=== PATIENT | male | born 1945 | race Caucasian/White ===

== ENCOUNTER 2023-02-02 10:02 | Outpatient (AMB) | payer MEDICARE, SELFPAY ==
[2023-02-02 10:15] VITALS: BP 112/68; PULSE 41; O2SAT 98; BMI 29.6
--- NOTE | 2023-02-02 10:15 | MHC.OFFVIS ---
Intake Vital Signs 02/02/23 10:15 Height 6 ft Weight 218 lb BMI 29.6 BP 112/68 Blood Pressure Location Rt brachial Position Sitting Pulse 41 L Pulse Source Pulse Oximeter Pulse Oximetry (%) 98 Oxygen Delivery Method Room Air Intake Visit Reasons: Obstructive sleep apnea Transition Rn Required: No Community Relations Officer: Community Relations Officer offered & declined Accompanied by: Spouse Allergies ciprofloxacin Adverse Reaction (Severe, Verified 02/02/23 10:20) Renal failure Medication List - Last Reconciled 02/02/23 by Carissa Baptiste LPN apixaban (Eliquis) 2.5 mg PO BID carbidopa-levodopa 25-100 mg 1 tab PO TID fluconazole 150 mg PO QWEEK rosuvastatin 20 mg PO DAILY valsartan-hydrochlorothiazide 160-25 mg 1 tab PO DAILY HPI Obstructive sleep apnea HPI Details Allen is a pleasant 77 year old male, former smoker with an approximate 24 pack year history, quit 50 years ago, with underlying obstructive sleep apnea on CPAP, CABG x 3, atrial fibrillation s/p ablation maintained on eliquis and recent dx of parkinson's. He was referred for pulmonary evaluation by PCP to manage LOVELY. He currently uses a full face mask and obtains supplies through [employer]. He is looking to switch his care regarding CPAP therapy as his current provider is retiring. He reports dyspnea with minimal exertion that has progressively worsened over the past few years as well as intermittent cough with clear sputum. He denies wheezing, chest tightness or chest pain. He reports son with asthma and brother with unknown respiratory issues. 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 He is currently involved in possible litigation surrounding prior asbestos exposure and has been told he has asbestosis. He denies any PFT or chest CT. He also notes he is undergoing cardiac evaluation for bradycardia and BLE edema. He denies orthopnea. He has had a stress test, holter and echocardiogram recently through [facility]. These reports are not available. He states he is going to be having a consultation with an arrhythmia specialist in the near future. [facility] Social History (Updated 02/02/23 @ 10:23 by Carissa Baptiste LPN) Patient Tobacco Use Status: Former Tobacco user Tobacco use type: Cigarette, Cigar and Pipe Cigarette Packs Per Day: 2 Years Smoked: 12 Review of Systems Const Denies chills, Denies excessive sweating, Denies fever(s), Denies headache(s) and Denies night sweats Eyes Denies dry eyes, Denies irritation and Denies itchy eyes ENT Reports Normal hearing present, Denies headache(s), Denies nasal congestion, Denies nasal discharge, Denies post nasal drip and Denies sore throat Card Denies chest pain, Denies chest pain at rest, Denies chest pain with activity, Denies claudication, Reports leg edema, Reports dyspnea on exertion, Denies orthopnea and Denies paroxysmal nocturnal dyspnea Resp Denies chest congestion, Reports cough, Denies excessive phlegm production, Denies pain on inspiration, Denies pain with cough, Reports dyspnea on exertion, Denies stridor and Denies wheezing Musc Denies myalgias Neuro Reports Normal hearing present and Denies headache(s) Endo Denies excessive sweating Felipe/Lymph Denies lymphadenopathy Aller/Immun Denies itchy eyes, Denies seasonal rhinorrhea and Denies wheezing Physical Exam Vital Signs: Last Vital Signs Pulse 41 L 02/02/23 10:15 BP 112/68 02/02/23 10:15 Pulse Ox 98 02/02/23 10:15 Oxygen Delivery Method Room Air 02/02/23 10:15 BMI result Body Mass Index 29.6 Const General: cooperative, healthy appearing, comfortable, no acute distress, well developed and alert Orientation/consciousness: patient oriented x3 Limitations: no limitations HEENT Head: Yes normal to inspection, Yes normocephalic and Yes atraumatic Ears: hearing grossly normal bilaterally and external ears normal Eyes General: appearance normal, both eyes and all related structures Eyelids: Yes eyelids normal Sclerae: sclerae normal EOM: EOMs intact bilaterally Neck Neck: Yes normal visual inspection and Yes no lymphadenopathy Lymphatic: no lymphadenopathy noted Chest Chest palpation & inspection: normal inspection of the chest Resp Effort & Inspection: normal respiratory effort, able to speak in complete sentences, no audible wheezes, no cough, no stridor, not tachypneic, no tripod positioning and no use of accessory muscles Auscultation: diminished lung sounds Cardio Jugular venous distension: no JVD Rate: regular rate Rhythm: regular rhythm Skin Other: warm, dry General skin exam: no rashes or lesions noted Neuro General: patient oriented x3 Cranial nerves: Yes Normal hearing present Cognition (Neuro): normal cognition Gait exam (Neuro): Normal gait present Extrem Other: 2+ pitting edema bilaterally General: Yes normal to inspection and Yes capillary refill normal Psych Appearance: grossly normal and well kempt Speech and movement: Normal speech and movement present and Clear speech present Affect: normal affect Attitude: cooperative Thought process: Normal thought process present Thought content: Normal thought content present Insight: Good insight present (Psych) Judgement: Good judgement present (Psych) Assessment & Plan Assessment & Plan (1) Dyspnea on minimal exertion: Code(s): R06.09 - Other forms of dyspnea (2) Cough: Code(s): R05.9 - Cough, unspecified (3) Asbestos exposure: Code(s): Z77.090 - Contact with and (suspected) exposure to asbestos (4) History of smoking 10-25 pack years: Code(s): Z87.891 - Personal history of nicotine dependence Plan Allen's symptoms are likely multifactorial with contribution from pulmonary, cardiac and deconditioning etiologies. Will send for PFT to evaluate. Given prior history of asbestos exposure, will send for chest CT. Will also have patient sign release to obtain cardiology records. Will reach out to [employer] for compliance report. All questions were answered and patient is in agreement of plan. Will follow up in 6-8 weeks or sooner if needed. Orders: Orders PFT pulmonary function test Today R05.9 - Cough, unspecified, R06.09 - Other forms of dyspnea CT chest wo IV con Today R05.9 - Cough, unspecified, Z77.090 - Contact with and (suspected) exposure to asbestos Coding Level of Care Code New Pt Level 4 (61892) Diagnoses Dyspnea on minimal exertion R06.09 Cough R05.9 Asbestos exposure Z77.090 History of smoking 10-25 pack years Z87.891
== END 2023-02-02 11:33 | disposition home or self-care (01) ==
PROVIDERS: PCP Internal Medicine; Referring Provider Internal Medicine; Visit Provider Nurse Practitioner Family
DX: R06.09 Other forms of dyspnea (principal); R05.9 Cough, unspecified; Z77.090 Contact with and (suspected) exposure to asbestos; Z87.891 Personal history of nicotine dependence
CPT/HCPCS: 99204

== ENCOUNTER → 2023-02-02 10:02 | Outpatient (BNVA) | payer MEDICARE, SELFPAY | PROVIDERS: PCP Internal Medicine; Referring Provider Internal Medicine; Visit Provider Nurse Practitioner Family | DX: R06.09 Other forms of dyspnea (principal); R05.9 Cough, unspecified; Z77.090 Contact with and (suspected) exposure to asbestos; Z87.891 Personal history of nicotine dependence | CPT/HCPCS: 99202 ==

== ENCOUNTER 2023-03-18 08:32 | Outpatient (REF) | payer MEDICARE, SELFPAY ==
--- NOTE | ~2023-03-18 | CT_ITS ---
EXAMINATION: CT CHEST WITHOUT CONTRAST CLINICAL INFORMATION: Asbestos exposure. COMPARISON: None available. TECHNIQUE: Multidetector volumetric CT imaging of the chest was done. Axial MIP volume rendering provided. Sagittal and coronal reformatted images were obtained. This CT examination was performed using dose optimization techniques as appropriate, variously including the following: *Automated exposure control *Adjustment of mA and/or kV according to patient size (this includes techniques or standardized protocols for targeted exams where dose is matched to indication/reason for exam; i.e. extremities or head) *Use of iterative reconstruction technique DLP: 208 mGy-cm FINDINGS: LUNGS AND PLEURA: Trachea and central airways are widely patent and normal in caliber. No interstitial lung disease. No pulmonary nodule, mass, consolidation or pleural effusion. The presence of bilateral calcified pleural plaques is consistent with sequela of remote asbestos exposure. CARDIOVASCULAR: Severe multivessel coronary artery atherosclerotic calcification is present, status post coronary artery bypass graft surgery. Left atrium is mildly enlarged. No pericardial effusion. Pulmonary arteries are normal in caliber. There is atherosclerotic calcification of the thoracic aorta without aneurysm. MEDIASTINUM AND LOWER NECK: No mediastinal mass. The esophagus and thyroid gland are unremarkable. LYMPHATICS: No pathologic sized lymph nodes. UPPER ABDOMEN: Unremarkable. SKELETAL AND CHEST WALL: The anterior fusion hardware the cervical spine is partially included in the [id number]. Mild spondylosis of the thoracic spine. No acute or suspicious osseous abnormality. The sternotomy is healed. CT/CT chest wo IV con IMPRESSION: * Bilateral calcified pleural plaques are consistent with sequela of remote asbestos exposure. * No interstitial fibrotic changes (i.e., no evidence of asbestosis) * Atherosclerotic disease of coronary arteries, status post coronary artery bypass graft surgery.
--- NOTE | 2023-03-18 12:43 | PFT_ITS ---
Indication: Dyspnea Spirometry [FEV1 to FVC 78%; FEV1 2.74 L which is 105% predicted; FVC 3.49 L which is 107% predicted. No significant response to bronchodilators noted. Normal maximum voluntary ventilation.] Lung Volumes [Tolerating capacity 69% predicted] Diffusion Capacity [DLCO 88% predicted] Comparisons [none] Interpretation [No obstructive ventilatory defects. No significant response to bronchodilators noted. Normal maximum voluntary ventilation. The patient does have a restrictive ventilatory defect consistent with mild to moderate restrictive lung disease. Normal diffusing capacity. Clinical correlation warranted.] MTDD
== END 2023-03-18 08:33 | disposition home or self-care (01) ==
LOC: HO.CT 08:32
PROVIDERS: PCP Internal Medicine; Visit Provider Nurse Practitioner Family
DX: R05.9 Cough, unspecified (principal); R06.09 Other forms of dyspnea; Z77.090 Contact with and (suspected) exposure to asbestos
CPT/HCPCS: 71250

== ENCOUNTER → 2023-03-18 12:43 | Outpatient (BNV) | payer MEDICARE, SELFPAY | PROVIDERS: PCP Internal Medicine; Visit Provider Hospitalist | DX: R05.9 Cough, unspecified (principal) | CPT/HCPCS: 94060; 94727; 94729 ==

== ENCOUNTER 2023-03-23 09:29 | Outpatient (AMB) | payer BC, SELFPAY ==
--- NOTE | 2023-03-23 09:34 | MHC.OFFVIS ---
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 Medical Assembler: Medical Assembler offered & declined Accompanied by: Spouse Allergies ciprofloxacin Adverse Reaction (Severe, Verified 03/23/23 09:42) Renal failure Medication List - Last Reconciled 03/23/23 by Carissa Baptiste LPN apixaban (Eliquis) 2.5 mg PO BID carbidopa-levodopa 25-100 mg 1 tab PO TID fluconazole 150 mg PO QWEEK rosuvastatin 20 mg PO DAILY valsartan-hydrochlorothiazide 160-25 mg 1 tab PO DAILY HPI lovely: 7 week f/u HPI Details Allen is a pleasant 77 year old male, former smoker with an approximate 24 pack year history, quit 50 years ago, with underlying obstructive sleep apnea on CPAP, asbestos exposure, CABG x 3, atrial fibrillation s/p ablation maintained on eliquis and parkinson's. He continues to report dyspnea with minimal exertion and intermittent cough with clear sputum. He denies wheezing, chest tightness or chest pain. He also notes he is undergoing cardiac evaluation for bradycardia and BLE edema. He has a stress test scheduled tomorrow. He recently was without his CPAP machine as he was out of town x 3 weeks and felt as though he was no longer symptomatic and requesting a repeat sleep study to assess severity of LOVELY. Today he presents to review PFT and Chest CT. [facility] Social History (Updated 03/23/23 @ 09:42 by Carissa Baptiste LPN) Patient Tobacco Use Status: Former Tobacco user Tobacco use type: Cigarette, Cigar and Pipe Cigarette Packs Per Day: 2 Years Smoked: 12 Smoked in Last 30 Days: No Review of Systems Const Denies chills, Denies excessive sweating, Denies fever(s), Denies headache(s) and Denies night sweats Eyes Denies dry eyes, Denies irritation and Denies itchy eyes ENT Reports Normal hearing present, Denies headache(s), Denies nasal congestion, Denies nasal discharge and Denies sore throat Card Denies chest pain, Denies chest pain at rest, Denies chest pain with activity, Denies claudication, Reports leg edema, Reports dyspnea on exertion, Denies orthopnea and Denies paroxysmal nocturnal dyspnea Resp Denies chest congestion, Reports cough, Denies excessive phlegm production, Denies pain on inspiration, Denies pain with cough, Reports dyspnea on exertion, Denies stridor and Denies wheezing Musc Denies myalgias Neuro Reports Normal hearing present and Denies headache(s) Endo Denies excessive sweating Felipe/Lymph Denies lymphadenopathy Aller/Immun Denies itchy eyes, Denies seasonal rhinorrhea and Denies wheezing Physical Exam Vital Signs: Last Vital Signs Pulse 50 03/23/23 09:35 BP 140/72 H 03/23/23 09:35 Pulse Ox 96 03/23/23 09:35 Oxygen Delivery Method Room Air 03/23/23 09:35 BMI result Body Mass Index 30.4 Const General: cooperative, healthy appearing, comfortable, no acute distress, well developed and alert Orientation/consciousness: patient oriented x3 Limitations: no limitations HEENT Head: Yes normal to inspection, Yes normocephalic and Yes atraumatic Ears: hearing grossly normal bilaterally and external ears normal Eyes General: appearance normal, both eyes and all related structures Eyelids: Yes eyelids normal Sclerae: sclerae normal EOM: EOMs intact bilaterally Neck Neck: Yes normal visual inspection and Yes no lymphadenopathy Lymphatic: no lymphadenopathy noted Chest Chest palpation & inspection: normal inspection of the chest Resp Effort & Inspection: normal respiratory effort, able to speak in complete sentences, no audible wheezes, no cough, no stridor, not tachypneic, no tripod positioning and no use of accessory muscles Auscultation: clear to auscultation bilaterally Cardio Jugular venous distension: no JVD Rate: regular rate Rhythm: regular rhythm Skin Other: warm, dry General skin exam: no rashes or lesions noted Neuro General: patient oriented x3 Cranial nerves: Yes Normal hearing present Cognition (Neuro): normal cognition Gait exam (Neuro): Normal gait present Extrem Other: 2+ pitting edema bilaterally General: Yes normal to inspection and Yes capillary refill normal Psych Appearance: grossly normal and well kempt Speech and movement: Normal speech and movement present and Clear speech present Affect: normal affect Attitude: cooperative Thought process: Normal thought process present Thought content: Normal thought content present Insight: Good insight present (Psych) Judgement: Good judgement present (Psych) Results Reviewed Results Reviewed: [address] [address] [address] Scan Report Signed Patient: Allen Villanueva MR#: [id number] : 1945 Acct:[id number] Age/Sex: 77 / M ADM Date: 03/18/23 Loc: HO.CT Attending Dr: Calista Nolasco NP Ordering Physician: Calista Nolasco NP Date of Service: 03/18/23 Procedure(s): CT chest wo IV con Accession Number(s): [id number] cc: NORAH PARSON MD; Calista Nolasco NP~ EXAMINATION: CT CHEST WITHOUT CONTRAST CLINICAL INFORMATION: Asbestos exposure. COMPARISON: None available. TECHNIQUE: Multidetector volumetric CT imaging of the chest was done. Axial MIP volume rendering provided. Sagittal and coronal reformatted images were obtained. This CT examination was performed using dose optimization techniques as appropriate, variously including the following: *Automated exposure control *Adjustment of mA and/or kV according to patient size (this includes techniques or standardized protocols for targeted exams where dose is matched to indication/reason for exam; i.e. extremities or head) *Use of iterative reconstruction technique DLP: 208 mGy-cm FINDINGS: LUNGS AND PLEURA: Trachea and central airways are widely patent and normal in caliber. No interstitial lung disease. No pulmonary nodule, mass, consolidation or pleural effusion. The presence of bilateral calcified pleural plaques is consistent with sequela of remote asbestos exposure. CARDIOVASCULAR: Severe multivessel coronary artery atherosclerotic calcification is present, status post coronary artery bypass graft surgery. Left atrium is mildly enlarged. No pericardial effusion. Pulmonary arteries are normal in caliber. There is atherosclerotic calcification of the thoracic aorta without aneurysm. MEDIASTINUM AND LOWER NECK: No mediastinal mass. The esophagus and thyroid gland are unremarkable. LYMPHATICS: No pathologic sized lymph nodes. UPPER ABDOMEN: Unremarkable. SKELETAL AND CHEST WALL: The anterior fusion hardware the cervical spine is partially included in the [id number]. Mild spondylosis of the thoracic spine. No acute or suspicious osseous abnormality. The sternotomy is healed. CT/CT chest wo IV con IMPRESSION: * Bilateral calcified pleural plaques are consistent with sequela of remote asbestos exposure. * No interstitial fibrotic changes (i.e., no evidence of asbestosis) * Atherosclerotic disease of coronary arteries, status post coronary artery bypass graft surgery. Assessment & Plan Assessment & Plan (1) Dyspnea on minimal exertion: Code(s): R06.09 - Other forms of dyspnea (2) Cough: Code(s): R05.9 - Cough, unspecified (3) History of smoking 10-25 pack years: Code(s): Z87.891 - Personal history of nicotine dependence (4) Pleural plaque with presence of asbestos: Code(s): J92.0 - Pleural plaque with presence of asbestos (5) LOVELY on CPAP: Code(s): G47.33 - Obstructive sleep apnea (adult) (pediatric) Plan Reviewed chest CT which did reveal pleural plaques consistent with prior asbestos exposure, however did not reveal any asbestosis. Will continue to monitor and schedule for chest CT in one year. Reviewed PFT which revealed normal spirometry and DLCO. TLC moderately decreased likely secondary to obesity. Discussed trialing an inhaler but patient also in the process of cardiac workup. Will wait until cardiology input. Patient requesting repeat home sleep study as he feels symptoms have improved without use and it has been over 3 year since last study. Will enter this and attempt to obtain compliance report from [facility]. All questions were answered and patient is in agreement of plan. Will follow up after cardiology evaluation and sleep study or sooner if needed. Orders: Orders CT chest wo IV con 11 Months J92.0 - Pleural plaque with presence of asbestos RT home sleep study Today G47.33 - Obstructive sleep apnea (adult) (pediatric), R06.83 - Snoring Medications: New ipratropium bromide administer into each nostril 2 sprays intranasal BID 30 mL 2RF Coding Level of Care Code Est Pt Level 4 (54467) Diagnoses Dyspnea on minimal exertion R06.09 Cough R05.9 History of smoking 10-25 pack years Z87.891 Pleural plaque with presence of asbestos J92.0 LOVELY on CPAP G47.33
[2023-03-23 09:35] VITALS: BP 140/72; PULSE 50; O2SAT 96; BMI 30.4
== END 2023-03-23 10:36 | disposition home or self-care (01) ==
PROVIDERS: PCP Internal Medicine; Visit Provider Nurse Practitioner Family
DX: R06.09 Other forms of dyspnea (principal); R05.9 Cough, unspecified; Z87.891 Personal history of nicotine dependence; J92.0 Pleural plaque with presence of asbestos; G47.33 Obstructive sleep apnea (adult) (pediatric)
CPT/HCPCS: 99214

== ENCOUNTER → 2023-03-23 09:29 | Outpatient (BNVA) | payer BC, MEDICARE, SELFPAY | PROVIDERS: PCP Internal Medicine; Visit Provider Nurse Practitioner Family ==

== ENCOUNTER 2023-04-12 08:35 | Outpatient (AMB) | payer BC, SELFPAY ==
--- NOTE | 2023-04-12 08:51 | A.OFFVIS_ITS ---
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 He is accompanied by his who helps with history He noticed tremors in his right hand about 2 years ago - mostly at rest and also difficulty with hand coordination.He was starte don sinemet 25/100 tid - he take sit at AM only and noticed improvement. He has some memory issues- repeats often and has some word finding difficulty . Sleep- uses CPAP , vivid dreams , no sleep talking since LOVELY Mood- normal Motivation- normal Speech- softer, hard to understand , has drooling on the right side of the mouth Handwriting- smaller hard to write Utensils- slower Dressing- slower, buttoning is hard SHower- slower Gait- slower, and has trouble walking far 1 fall 2 years ago after knee surgery No trouble turning in bed No dizziness No vertigo No double vision No hallucinations H/o constipation H/o numbness in hands PFSH Medical History Atrial fibrillation Parkinson's disease without dyskinesia TIA (transient ischemic attack) Surgical History S/P cervical spinal fusion H/O elbow surgery H/O shoulder surgery H/O lumbosacral spine surgery Total knee replacement status H/O heart bypass surgery History of back surgery History of appendectomy Social History Household Members: Spouse Patient Tobacco Use Status: Former Tobacco user Tobacco use type: Cigarette, Cigar and Pipe Cigarette Packs Per Day: 2 Years Smoked: 12 Physical Exam Vital Signs: Last Vital Signs Pulse 58 04/12/23 08:52 Resp 16 04/12/23 08:52 BP 112/68 04/12/23 08:52 BMI result Body Mass Index 30.5 Const General: cooperative, healthy appearing and no acute distress Nutritional Appearance: average body habitus Orientation/consciousness: patient oriented x3 HEENT Head: Yes normal to inspection Neck Other: mild antecollis and restricted range of motion Neuro Other: Moderate decreased blink and facial expression slow tongue movements Voice- severe hypophonia dysprosody Right UE rest tremors - intermittent FineFinger movements - severely decreased wilfredo R>L Alternating hand movements - decreased wilfredo Hand movements - decreased wilfredo Foot taps- decreased wilfredo cog wheel rigidity !+ gait - stooped, moderate slowness and decreased arm swing R>L General: patient oriented x3 and no focal motor deficits Cranial nerves: Yes CN's II-XII intact bilaterally, Yes Bilaterally intact EOM present, Yes Normal facial strength present and Yes Midline tongue present Cognition (Neuro): normal cognition and abnormal cognition (repeats questions frequently) Motor exam (neuro): 5/5 motor strength present throughout and Normal motor muscle tone present throughout Deep tendon reflexes (DTR's): Right triceps reflex intensity grade: 2+, Left triceps reflex intensity grade: 2+, Rt Biceps (C5, C6): 2+, Left biceps reflex intensity grade: 2+, Right brachioradialis reflex intensity grade: 2+, Left brachioradialis reflex intensity grade: 2+, Right patellar reflex intensity grade: 2+ and Left patellar reflex intensity grade: 2+ Coordination: [id number] test normal Assessment & Plan Assessment & Plan (1) Parkinson's disease without dyskinesia: Code(s): G20.A1 - Parkinson's disease without dyskinesia, without mention of fluctuations Plan Discussed the diagnosis , prognosis and management options I suggested he increase carbidopa/levodopa 25/100 to tid - discussed to separate intake with protein by 30minutes Refer to [facility] and LOUD ( PT and speech) program Info on APDA given. WIll consider MRI Orders: Orders PT Evaluation and Treatment Today G20.A1 - Parkinson's disease without dyskinesia, without mention of fluctuations Referrals Speech and Hearing Referral G20.A1 - Parkinson's disease without dyskinesia, without mention of fluctuations Coding Level of Care Code New Pt Level 4 (63874) Diagnoses Parkinson's disease without dyskinesia G20.A1
[2023-04-12 08:52] VITALS: BP 112/68; PULSE 58; RESP 16; BMI 30.5
== END 2023-04-12 09:40 | disposition home or self-care (01) ==
PROVIDERS: Visit Provider Psychiatry & Neurology Neurology
DX: G20.A1 Parkinson's disease without dyskinesia, without mention of fluctuations (principal)
CPT/HCPCS: 99204

== ENCOUNTER → 2023-04-12 08:35 | Outpatient (BNVA) | payer BC, MEDICARE, SELFPAY | PROVIDERS: Visit Provider Psychiatry & Neurology Neurology ==

== ENCOUNTER 2023-04-27 12:32 | Outpatient (RCR) | payer MEDICARE, SELFPAY ==
--- NOTE | 2023-05-05 08:55 | MHC.SP.ADU ---
Referring provider: Dr. Fernanda Pena Reason for Referral: Parkinson's, Hypophonia - Assess for LOUD treatment Type of Treatment: 01499 Behavioral and Qualitative Analysis of Voice and Resonance Date of Plan of Treatment: 04/27/23 Onset of Symptoms/Illness: 04/27/21 Date Treatment Started: 04/27/23 Medical Diagnosis: Parkinson's Disease without Dyskinesia, Hypophonia Primary Speech Language Diagnosis: G20 Parkinson?s disease Secondary Speech Language Diagnosis: R49.0 Dysphonia History Allen Villanueva is a 77 year old man who was referred by his neurologist due to hypophonia associated with Parkinson's Disease. Allen came with his to the appointment and contributed to the collection of background information. Allen began having symptoms at lease two years ago, noticing hand tremors and difficulty with coordination. He saw a neurologist in [place] at that time, but received no report, medical intervention or follow up from that physician, learning only a year or so later from his GP that he had been diagnosed with Parkinson's disease. Allen recently saw Dr. Pena, who has started him on medical interventions and referred him for this evaluation. Allen reports that he has been having increasing difficulty with his voice, saying that is started fading at lease two years ago. He reports often being self conscious about his difficulty with speaking and will avoid talking in groups, e.g. a weekly men's fellowship group that he attends. He also has difficulty speaking and being understood on the phone, and in many situations his steps in to help him get his point across. His voice may be better in the morning, but by later in the day it may be difficult to produce any voice. This is also true if he has needed to do any extended talking, which also causes vocal fatigue. Allen also expressed general low energy and marked difficulty with handwriting, which has become very small and difficult to read. Finally, Allen and his reported that he notices he periodically drools and may have saliva collect in his jha when eating. Allen has worked as a [employer] for most of his life, and while their home is in [place], [place], His family has mostly lived in [place] in the [place] area. In alf, he and his have returned to a cabin in the [facility]. Allen still does fine woodworking and fells and splits trees on the property. They have one daughter who lives close by, with their four other children living [place], and they are grandparents to 11 children. Allen and his are very involved in their local [employer]. Medical History: Atrial Fibrillation, super ventricular tachycardia, history of TIA, bilateral knee replacement surgery, Triple Bypass Surgery, Cervical Spinal Fusion, Lumbosacral Spine Surgery, Shoulder surgery. Medication List: Please see medical chart Recent Hospitalizations: No Respiratory Needs: Room Air Patient Orientation: Alert & Oriented x 4 Social History: Employment Status: Retired Highest level of education obtained: Unknown/Unable to report Current Living Situation: Lives in a private home with his in [place] Past Speech Language Therapy: None Other Therapies Seen in Current Calendar Year: None, PT pending Reported Speech, Language, Cognition difficulties: Voice Comments: Allen presents with a mild mixed hypophonia (decreased vocal volume) and mildly hoarse/breathy vocal quality (dysphonia) Quality of Life: Excellent Patient Stated Goal of Speech-Language Therapy: Provide intervention to improve vocal volume and clarity Assessment Speech Production: Articulate Clinical Impression: Intact Observations: Allen's speech is articulate and clear, with no evidence of motor impairment or pathology. All aspects of speech production is within functional limits. Informal Voice Assessment: Voice Loudness: Mild to moderately Soft/Quiet Voice Nasal Resonance: Normal Voice Oral Resonance: Normal Voice Phonatory-based Quality: Breathy/Hoarse Voice Pitch: Mildly High Clinical Impression: Impaired Clinicial Observations: Allen was assessed using the Consensus Auditory-Perceptual Evaluation of Voice (CAPE V). When sustaining a vowel sound on a breath for a period of 5 seconds, Allen evidenced a hoarse/breathy vocal quality with periodic sound breaks. In connected speech, he similarly produced a mildly hoarse/breathy vocal quality, mild to moderately reduced volume, and mildly higher pitch of voice than expected. On s/z ratio, the result was 2, which reflected greater difficulty sustaining voicing for /z/, with Allen's ability to sustain voice production cutting out at nine seconds and becoming aphonic. Allen's Diodochokinetic rate and production was within functional limits. On producing pitch variation, skills were within functional limits. When asked to produce volume variation, there was limited to no variation in loudness of his voice, which was mild to moderately soft. Impressions and Recommendations Summary: On qualitative evaluation of voice production, Allen evidences a mildly hoarse/breathy vocal quality an mild to moderately reduced vocal volume. Allen additionally reports loss of voice when fatigued, difficulty producing adequate volume for communication, avoidance of communication, an overall generalized weakness, and mild oral drooling. Allen has been diagnosed with Parkinson's disease, and vocal behavior/difficulties are strongly associated with Parkinson's. The prescriptive intervention of LSVT Loud was discussed with Allen and his at the conclusion of this evaluation, as Allen presents as a strong candidate for this intervention. LSVT Loud is a well researched, evidence based intervention intended for Parkinson's patient's and their communications needs. It requires a commitment from the patient to attend four, weekly, hour long speech therapy sessions for a period of one month. Allen was advised that, due to the level and intensity of the program and demand for a specific time frame, there may be some delays in scheduling due to both client and clinic considerations. Allen and his expressed interest in participating in LSVT Loud intervention. Impact on Daily Function/Activity Limitations: Daily Activities: Moderate Interpersonal Interactions: Moderate Community: Moderate Prognosis for Improvement: Good Recommendation for Speech Therapy: Outpatient Speech Therapy Frequency/Duration: Four hour long therapy session weekly for a period of one month (16 sessions) Date Range for Service Requested: Sixteen individual, hour long sessions over a period of one month. Time to Reassess: PRN Social Science Professor Goals: Allen will produce and sustain adequate vocal volume (SPL 80 db range) in conversational speech with perceptually normal vocal quality. Short Term Goals: Goal # : 1.1 Allen will sustain an open vowel sound at normal vocal volume range (SPL 80) for five seconds in ten trials 1.2 Allen will sustain an open vowel sound at an increased pitch with vocal volume range of SPL 70-80 for five seconds in ten trials 1.3 Allen will sustain an open vowel sound with varying pitch levels with vocal volume range of SPLICING MACHINE OPERATOR AUTOMATIC 70-80 for five seconds in ten trials. Goal Status: Goal# : 2.1 Allen will produce and sustain normal vocal volume range ([id number]) when producing words in ten trials 2.2 Allen will produce and sustain normal vocal volume range ([id number]) when producing phrases in ten trials 2.3 Allen will produce and sustain normal vocal volume range ([id number]) when producing functional communication phrases in ten trials Goal Status: Goal # : 3.1 Allen will produce and sustain normal vocal volume range ([id number]) when reading a paragraph length passage 3.2 Allen will produce and sustain normal vocal volume range ([id number]) when engaged in conversational speech 3.3 Allen will produce and sustain normal vocal volume range ([id number]) when engaged in functional communication activities (e.g. speaking on the phone, communicating in community contexts) Goal Status: Goal # : Goal Status: Recommended Referrals to be Discussed with Primary Care Provider: Allen has additionally been referred to physical therapy for the BIG program. Patient Education: Completed: Yes Patient/Caregiver Education: Described Results of Evaluation Patient expressed understanding of evaluation Patient agrees with goals and treatment plan Comments/Barriers to Learning: Roving Department Supervisor Clinican/Clinical Fellow: No Supervisory Statement: N/A Speech Language Pathologist: Em Mejía M.A., CCC-SPLICING MACHINE OPERATOR AUTOMATIC
== END 2023-05-19 14:52 | disposition still patient (30) ==
LOC: HO.SH 12:32
PROVIDERS: Visit Provider Psychiatry & Neurology Neurology
DX: G20.A1 Parkinson's disease without dyskinesia, without mention of fluctuations (principal)
CPT/HCPCS: 92524

== ENCOUNTER → 2023-05-18 08:47 | Outpatient (REF) | payer MEDICARE, SELFPAY | LOC: HO.SL 08:47 | PROVIDERS: Visit Provider Nurse Practitioner Family | DX: G47.33 Obstructive sleep apnea (adult) (pediatric) (principal); R06.83 Snoring | CPT/HCPCS: 95806 ==

== ENCOUNTER → 2023-05-18 08:56 | Outpatient (BNV) | payer MEDICARE, SELFPAY | PROVIDERS: Visit Provider Internal Medicine | DX: G47.33 Obstructive sleep apnea (adult) (pediatric) (principal) | CPT/HCPCS: 95806 ==

== ENCOUNTER 2023-05-31 11:15 | Outpatient (AMB) | payer MEDICARE, SELFPAY ==
--- NOTE | 2023-05-30 20:54 | A.OFFVIS_ITS ---
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 Canning: Supervisor Pow[employer] Primer Canning offered & declined Accompanied by: Spouse Allergies ciprofloxacin Adverse Reaction (Severe, Verified 05/31/23 11:36) Renal failure Medication List - Last Reconciled 05/31/23 by Carissa Baptiste LPN apixaban (Eliquis) 2.5 mg PO BID carbidopa-levodopa 25-100 mg 1 tab PO TID fluconazole 150 mg PO QWEEK ipratropium bromide 2 sprays intranasal BID rosuvastatin 20 mg PO DAILY valsartan-hydrochlorothiazide 160-25 mg 1 tab PO DAILY HPI Obstructive sleep apnea 2 HPI0 Details Allen is a pleasant 77 year old male, former smoker with an approximate 24 pack year history, quit 50 years ago, with underlying obstructive sleep apnea on CPAP, asbestos exposure, CABG x 3, atrial fibrillation s/p ablation maintained on eliquis and parkinson's. Since the last visit he underwent cardiac evaluation for bradycardia and BLE edema, with stress test but reports no medication is indicated at this time. Today he denies respiratory symptoms and presents to review recent sleep study. He has previously been diagnosed with mild LOVELY and felt as though he was no longer symptomatic, hoping to discontinue CPAP therapy. [facility] Medical History Atrial fibrillation Parkinson's disease without dyskinesia TIA (transient ischemic attack) Surgical History S/P cervical spinal fusion H/O elbow surgery H/O shoulder surgery H/O lumbosacral spine surgery Total knee replacement status H/O heart bypass surgery History of back surgery History of appendectomy Social History (Updated 05/31/23 @ 11:36 by Carissa Baptiste LPN) Household Members: Spouse Patient Tobacco Use Status: Former Tobacco user Tobacco use type: Cigarette, Cigar and Pipe Cigarette Packs Per Day: 2 Years Smoked: 12 Review of Systems Const Denies chills, Denies excessive sweating, Denies fever(s), Denies headache(s) and Denies night sweats Eyes Denies dry eyes, Denies irritation and Denies itchy eyes ENT Reports Normal hearing present, Denies headache(s), Denies nasal congestion, Denies nasal discharge, Denies post nasal drip and Denies sore throat Card Denies chest pain, Denies chest pain at rest, Denies chest pain with activity, Denies claudication, Denies leg edema, Denies dyspnea, Denies dyspnea on exertion, Denies orthopnea and Denies paroxysmal nocturnal dyspnea Resp Denies chest congestion, Denies cough, Denies excessive phlegm production, Denies pain on inspiration, Denies pain with cough, Denies dyspnea, Denies dyspnea on exertion, Denies stridor and Denies wheezing Musc Denies myalgias Neuro Reports Normal hearing present and Denies headache(s) Endo Denies excessive sweating Felipe/Lymph Denies lymphadenopathy Aller/Immun Denies itchy eyes, Denies seasonal rhinorrhea and Denies wheezing Physical Exam Vital Signs: Last Vital Signs BP 130/70 05/31/23 11:29 Pulse Ox 99 05/31/23 11:29 Oxygen Delivery Method Room Air 05/31/23 11:29 BMI result Body Mass Index 31.1 Const General: cooperative, healthy appearing, comfortable, no acute distress, well developed and alert Orientation/consciousness: patient oriented x3 Limitations: no limitations HEENT Head: Yes normal to inspection, Yes normocephalic and Yes atraumatic Ears: hearing grossly normal bilaterally and external ears normal Eyes General: appearance normal, both eyes and all related structures Eyelids: Yes eyelids normal Sclerae: sclerae normal EOM: EOMs intact bilaterally Neck Neck: Yes normal visual inspection and Yes no lymphadenopathy Lymphatic: no lymphadenopathy noted Chest Chest palpation & inspection: normal inspection of the chest Resp Effort & Inspection: normal respiratory effort, able to speak in complete sentences, no audible wheezes, no cough, no stridor, not tachypneic, no tripod positioning and no use of accessory muscles Auscultation: diminished lung sounds Cardio Jugular venous distension: no JVD Rate: regular rate Rhythm: abnormal rhythm Skin Other: warm, dry General skin exam: no rashes or lesions noted Neuro General: patient oriented x3 Cranial nerves: Yes Normal hearing present Cognition (Neuro): normal cognition Gait exam (Neuro): Normal gait present Extrem General: Yes normal to inspection, Yes capillary refill normal, Yes no clubbing, cyanosis or edema and Yes no pedal edema Psych Appearance: grossly normal and well kempt Speech and movement: Normal speech and movement present and Clear speech present Affect: normal affect Attitude: cooperative Thought process: Normal thought process present Thought content: Normal thought content present Insight: Good insight present (Psych) Judgement: Good judgement present (Psych) Results Reviewed Results Reviewed: Assessment & Plan Assessment & Plan (1) Mild obstructive sleep apnea: Code(s): G47.33 - Obstructive sleep apnea (adult) (pediatric) (2) History of smoking 10-25 pack years: Code(s): Z87.891 - Personal history of nicotine dependence (3) Pleural plaque with presence of asbestos: Code(s): J92.0 - Pleural plaque with presence of asbestos Plan Reviewed home sleep study which revealed AHI of 4 with lateral positioning and 10 with supine positioning, no significant nocturnal hypoxemia noted. He would like to attempt conservative measures including positional therapy in place of CPAP. Will send discontinuation prescription to [facility] (previously thought [facility] At this time he denies respiratory symptoms but will call office if symptoms worsen. All questions were answered and patient is in agreement of plan. Will follow up after chest CT in one year or sooner if needed. Coding Level of Care Code Est Pt Level 4 (44802) Diagnoses Mild obstructive sleep apnea G47.33 History of smoking 10-25 pack years Z87.891 Pleural plaque with presence of asbestos J92.0
[2023-05-31 11:29] VITALS: BP 130/70; O2SAT 99; BMI 31.1
== END 2023-05-31 12:17 | disposition home or self-care (01) ==
PROVIDERS: PCP Internal Medicine; Visit Provider Nurse Practitioner Family
DX: G47.33 Obstructive sleep apnea (adult) (pediatric) (principal); Z87.891 Personal history of nicotine dependence; J92.0 Pleural plaque with presence of asbestos
CPT/HCPCS: 99214

== ENCOUNTER → 2023-05-31 11:15 | Outpatient (BNVA) | payer MEDICARE, SELFPAY | PROVIDERS: PCP Internal Medicine; Visit Provider Nurse Practitioner Family | DX: G47.33 Obstructive sleep apnea (adult) (pediatric) (principal); J92.0 Pleural plaque with presence of asbestos; Z87.891 Personal history of nicotine dependence | CPT/HCPCS: 99212 ==

== ENCOUNTER 2023-06-24 11:00 | Outpatient (RCR) | payer MEDICARE, SELFPAY ==
--- NOTE | 2023-06-24 11:05 | MHC.SL.SOA ---
Referring Provider: Dr. Fernanda Pena Reason for Referral: Parkinson's, Hypophonia - Assess for LOUD treatment Date of Plan of Treatment:04/27/23 Onset of Symptoms/Illness:04/27/21 Date Treatment Started:04/27/23 Medical Diagnosis:Parkinson's Disease Primary Speech Language Diagnosis:R49.0 Dysphonia Secondary Speech Language Diagnosis:G20 Parkinson?s disease Number of Authorized Visits Remaining: Authorization End Date: Reason for Visit:[id number] Individual Treatment Other: Subjective:Allen arrived on time for his 15th Session of LSVT loud treatment today. He reported that had a better night's sleep from the previous day and felt well. Today's session focused on post testing using calibrated equipment ([employer] group) to collect data. Unfortunately, although the equipment had been well prepped for use, it initially failed and time when to rebooting the system in order for it to function. Back up data was collected using phone apps sound meter and vocal pitch as a fail safe. Objective: Allen was assessed today with the same protocol used to gather baseline data, using [employer] tools for measurments of volume (dB) Hertz (Hz) and duration (time/sec). Results for specific tasks are indicated below with baseline data presented in parenthesis for comparison. Assessment:Goal 1.1: On six samples of Loud AH Allen demonstrated a range of dB of 78-81 (62-70); and average dB of 80 (67); duration range 7-11 sec (9-12) and average duration of 10 (10) Goal 1.2 On pitch glides to highest note in three samples, Allen's highest Hz was 277 (200) and range of highest pitch was 220-277 (190-220) Goal 1.3 On pitch glides to lowest sustained note in three samples, Allen's lowest Hz was 131, (General reading of <150) and range of lowest sustained pitch was 131-147 (General reading of <151) Goal 3.1: On reading a phonemically balanced paragraph length material ( Grandfather - note, baseline was [place] ), Allen demonstrated a range of dB of 72-82 (50-60) and an average dB of 76 (not reported). Allen has evidenced some mild issues with decoding which can be a distractor when reading new material and it was evident on this task. On this same task with a distractor (flipping egg timer) average dB was 75 (50) Goal 3.2: Allen produced a spontaneous conversational monologue about a favorite family trip, Allen demonstrated a range of 71-83 dB (50-60) with an average of 77 dB (56) On this same task with a distractor (flipping an egg timer) average 76 dB (data not taken) Notes: Note: Commentary on post testing: In all contexts, Allen is demonstrating increased and sustained vocal volume, increase range of pitch, increased and consistent vocal clarity. Plan: Goal # : 1.1 Allen will sustain an open vowel sound at normal vocal volume range (SPL 80) for five seconds in ten trials 1.2 Allen will sustain an open vowel sound at an increased pitch with vocal volume range of SPL 70-80 for five seconds in ten trials 1.3 Allen will sustain an open vowel sound with varying pitch levels with vocal volume range of [employer] 70-80 for five seconds in ten trials. Status of Goal: Goal # : 2.1 Allen will produce and sustain normal vocal volume range (MOB96-13) when producing words in ten trials 2.2 Allen will produce and sustain normal vocal volume range (DAN99-33) when producing phrases in ten trials 2.3 Allen will produce and sustain normal vocal volume range (IHS18-28) when producing functional communication phrases in ten trials Status of Goal: Goal # : 3.1 Allen will produce and sustain normal vocal volume range (SZZ52-11) when reading a paragraph length passage 3.2 Allen will produce and sustain normal vocal volume range (GAN56-67) when engaged in conversational speech 3.3 Allen will produce and sustain normal vocal volume range (GVO73-41) when engaged in functional communication activities (e.g. speaking on the phone, communicating in community contexts) Status of Goal: Goal # : Status of Goal: Seen by: Graduate/Clinical Fellow: No Supervisory Statement: f_Reg Query Last Value , MHC.AU.SIGNATUR Speech Language Pathologist: Em Mejía M.A., [facility]
== END 2023-08-17 14:54 | disposition home or self-care (01) ==
LOC: HO.SH 11:00
PROVIDERS: PCP Internal Medicine; Visit Provider Psychiatry & Neurology Neurology
DX: G20.A1 Parkinson's disease without dyskinesia, without mention of fluctuations (principal); R49.0 Dysphonia
CPT/HCPCS: 92507

== ENCOUNTER 2023-08-15 08:58 | Outpatient (AMB) | payer BC, SELFPAY ==
--- NOTE | 2023-08-15 09:02 | A.OFFVIS_ITS ---
Vital Signs 08/15/23 09:03 Height 6 ft Weight 225 lb BMI 30.5 BP 136/72 Blood Pressure Location Rt brachial Position Sitting Respiration 16 Pulse 60 Pulse Source Pulse Oximeter Pulse Oximetry (%) 99 Oxygen Delivery Method Room Air Intake Visit Reasons: Parkinson - LVM w/add Intake Note: Pt presents for 4 month follow up for Parkinson's. 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 He is accompanied by his who helps with history He noticed tremors in his right hand about 2 years ago - mostly at rest and also difficulty with hand coordination.He is doing better now He has some memory issues- repeats often and has some word finding difficulty . Sleep- stopped CPAP - retesting showed mild sleep apnea., vivid dreams , no sleep talking since LOVELY Mood- normal Motivation- normal Speech- softer, hard to understand , has drooling on the right side of the mouth Handwriting- smaller hard to write Utensils- slower Dressing- slower, buttoning is hard SHower- slower Gait- slower, and has trouble walking far 1 fall 2 years ago after knee surgery No trouble turning in bed No dizziness No vertigo No double vision No hallucinations H/o constipation H/o numbness in hands PFSH Medical History Atrial fibrillation Parkinson's disease without dyskinesia TIA (transient ischemic attack) Surgical History S/P cervical spinal fusion H/O elbow surgery H/O shoulder surgery H/O lumbosacral spine surgery Total knee replacement status H/O heart bypass surgery History of back surgery History of appendectomy Social History Household Members: Spouse Patient Tobacco Use Status: Former Tobacco user Tobacco use type: Cigarette, Cigar and Pipe Cigarette Packs Per Day: 2 Years Smoked: 12 Physical Exam Vital Signs: Last Vital Signs Pulse 60 08/15/23 09:03 Resp 16 08/15/23 09:03 BP 136/72 08/15/23 09:03 Pulse Ox 99 08/15/23 09:03 Oxygen Delivery Method Room Air 08/15/23 09:03 BMI result Body Mass Index 30.5 Const General: cooperative, healthy appearing and no acute distress Nutritional Appearance: average body habitus Orientation/consciousness: patient oriented x3 HEENT Head: Yes normal to inspection Neck Other: mild antecollis and restricted range of motion Neuro Other: Moderate decreased blink and facial expression slow tongue movements Voice- mild hypophonia dysprosody Right UE rest tremors - intermittent FineFinger movements - severely decreased wilfredo R>L Alternating hand movements - decreased wilfredo Hand movements - decreased wilfredo Foot taps- decreased wilfredo cog wheel rigidity !+ gait - stooped, moderate slowness and decreased arm swing R>L General: patient oriented x3 and no focal motor deficits Cranial nerves: Yes CN's II-XII intact bilaterally, Yes Bilaterally intact EOM present, Yes Normal facial strength present and Yes Midline tongue present Cognition (Neuro): normal cognition Motor exam (neuro): 5/5 motor strength present throughout and Normal motor muscle tone present throughout Deep tendon reflexes (DTR's): Right triceps reflex intensity grade: 2+, Left triceps reflex intensity grade: 2+, Rt Biceps (C5, C6): 2+, Left biceps reflex intensity grade: 2+, Right brachioradialis reflex intensity grade: 2+, Left brachioradialis reflex intensity grade: 2+, Right patellar reflex intensity grade: 2+ and Left patellar reflex intensity grade: 2+ Coordination: [id number] test normal Assessment & Plan Assessment & Plan (1) Parkinson's disease without dyskinesia: Code(s): G20.A1 - Parkinson's disease without dyskinesia, without mention of fluctuations Category: Medical Plan Continue carbidopa/levodopa 25/100 to bid - discussed to separate intake with protein by 30minutes LOUD program PT after summer Info on APDA given. WIll consider MRI Orders: Orders PT Evaluation and Treatment Today G20.A1 - Parkinson's disease without dyskinesia, without mention of fluctuations Coding Level of Care Code Est Pt Level 4 (80294) Complex EM visit Add On G2211 Diagnoses Parkinson's disease without dyskinesia G20.A1
[2023-08-15 09:03] VITALS: BP 136/72; PULSE 60; RESP 16; O2SAT 99; BMI 30.5
== END 2023-08-15 09:27 | disposition home or self-care (01) ==
PROVIDERS: Visit Provider Psychiatry & Neurology Neurology
DX: G20.A1 Parkinson's disease without dyskinesia, without mention of fluctuations (principal)
CPT/HCPCS: 99214

== ENCOUNTER → 2023-08-15 08:58 | Outpatient (BNVA) | payer BC, MEDICARE, SELFPAY | PROVIDERS: Visit Provider Psychiatry & Neurology Neurology | DX: G20.A1 Parkinson's disease without dyskinesia, without mention of fluctuations (principal) ==

== ENCOUNTER 2024-02-10 10:12 | Outpatient (AMB) | payer BC, SELFPAY ==
--- NOTE | 2024-02-10 10:15 | A.OFFVIS_ITS ---
Vital Signs 02/10/24 10:16 Height 6 ft Weight 228 lb BMI 30.9 BP 138/90 H Blood Pressure Location Rt brachial Position Sitting Intake Visit Reasons: Parkinson Intake Note: Patient presents for parkinson's follow up Allergies ciprofloxacin Adverse Reaction (Severe, Verified 02/10/24 10:19) Renal failure HPI Comments Details: 78y/o Right handed male comes for follow up of Parkinson disease.He stopped carbidopa/levodopa last week as he did not notice any improvement . according to his his tremors are more towards the end of the day.He had 1 fall when he missed the curb.speech therapy helped. [facility]. He noticed tremors in his right hand about 3-4 (2019 )years ago - mostly at rest and also difficulty with hand coordination.He is doing better now He has some memory issues- repeats often and has some word finding difficulty . Sleep- stopped CPAP - retesting showed mild sleep apnea., vivid dreams , no sleep talking since LOVELY Mood- normal Motivation- normal Speech- softer, hard to understand , has drooling on the right side of the mouth Handwriting- smaller hard to write Utensils- slower Dressing- slower, buttoning is hard SHower- slower Gait- slower, and has trouble walking No trouble turning in bed No dizziness No vertigo No double vision No hallucinations H/o constipation H/o numbness in hands PFSH Medical History Atrial fibrillation Parkinson's disease without dyskinesia TIA (transient ischemic attack) Surgical History S/P cervical spinal fusion H/O elbow surgery H/O shoulder surgery H/O lumbosacral spine surgery Total knee replacement status H/O heart bypass surgery History of back surgery History of appendectomy Social History Household Members: Spouse Patient Tobacco Use Status: Former Tobacco user Tobacco use type: Cigarette, Cigar and Pipe Cigarette Packs Per Day: 2 Years Smoked: 12 Physical Exam Vital Signs: Last Vital Signs BP 138/90 H 02/10/24 10:16 BMI result Body Mass Index 30.9 Const General: cooperative, healthy appearing and no acute distress Nutritional Appearance: average body habitus Orientation/consciousness: patient oriented x3 HEENT Head: Yes normal to inspection Neck Other: mild antecollis and restricted range of motion Neuro Other: Moderate decreased blink and facial expression slow tongue movements Voice- mild hypophonia dysprosody No tremors today FineFinger movements - severely decreased wilfredo R>L Alternating hand movements - decreased wilfredo Hand movements - decreased wilfredo Foot taps- decreased wilfredo cog wheel rigidity !+ gait -mild stoop moderate slowness and decreased arm swing L>R General: patient oriented x3 and no focal motor deficits Cranial nerves: Yes CN's II-XII intact bilaterally, Yes Bilaterally intact EOM present, Yes Normal facial strength present and Yes Midline tongue present Cognition (Neuro): normal cognition Motor exam (neuro): 5/5 motor strength present throughout and Normal motor muscle tone present throughout Coordination: [id number] test normal Assessment & Plan Assessment & Plan (1) Parkinson's disease without dyskinesia: Code(s): G20.A1 - Parkinson's disease without dyskinesia, without mention of fluctuations Category: Medical Qualifiers: Fluctuating manifestations: without fluctuating manifestations Qualified Code(s): G20.A1 - Parkinson's disease without dyskinesia, without mention of fluctuations Plan Hold off on medications for now [place] [facility] [place] of [place]obics and continue speech exercises. Info on APDA given. WIll consider MRI Coding Level of Care Code Est Pt Level 4 (15045) Complex EM visit Add On G2211 Diagnoses Parkinson's disease without dyskinesia or fluctuating manifestations G20.A1 Fluctuating manifestations: without fluctuating manifestations
[2024-02-10 10:16] VITALS: BP 138/90; BMI 30.9
== END 2024-02-10 10:46 | disposition home or self-care (01) ==
PROVIDERS: Visit Provider Psychiatry & Neurology Neurology
DX: G20.A1 Parkinson's disease without dyskinesia, without mention of fluctuations (principal)
CPT/HCPCS: 99214

== ENCOUNTER → 2024-02-10 10:12 | Outpatient (BNVA) | payer BC, MEDICARE, SELFPAY | PROVIDERS: Visit Provider Psychiatry & Neurology Neurology | DX: G20.A1 Parkinson's disease without dyskinesia, without mention of fluctuations (principal) ==

== ENCOUNTER 2024-03-29 09:13 | Outpatient (AMB) | payer MEDICARE, SELFPAY ==
[2024-03-29 09:16] VITALS: BMI 30.5
--- NOTE | 2024-03-29 09:16 | A.OFFVIS_ITS ---
Vital Signs 03/29/24 09:16 Height 6 ft Weight 225 lb BMI 30.5 Intake Visit Reasons: Follow up medication Intake Note: Patient presents for follow up Allergies ciprofloxacin Adverse Reaction (Severe, Verified 03/29/24 09:18) Renal failure HPI Comments Details: 78y/o Right handed male comes for follow up of Parkinson disease.He stopped carbidopa/levodopa 1month ago and feels he is slower. He had COVID from and was sick for atleast 1 week History form last visit-according to his his tremors are more towards the end of the day.He had 1 fall when he missed the curb.speech therapy helped. [facility]. He noticed tremors in his right hand about 3-4 (2019 )years ago - mostly at rest and also difficulty with hand coordination.He is doing better now He has some memory issues- repeats often and has some word finding difficulty . Sleep- stopped CPAP - retesting showed mild sleep apnea., vivid dreams , no sleep talking since LOVEYL Mood- normal Motivation- normal Speech- softer, hard to understand , has drooling on the right side of the mouth Handwriting- smaller hard to write Utensils- slower Dressing- slower, buttoning is hard SHower- slower Gait- slower, and has trouble walking No trouble turning in bed No dizziness No vertigo No double vision No hallucinations H/o constipation H/o numbness in hands PFSH Medical History Atrial fibrillation Parkinson's disease without dyskinesia TIA (transient ischemic attack) Surgical History S/P cervical spinal fusion H/O elbow surgery H/O shoulder surgery H/O lumbosacral spine surgery Total knee replacement status H/O heart bypass surgery History of back surgery History of appendectomy Social History Household Members: Spouse Patient Tobacco Use Status: Former Tobacco user Tobacco use type: Cigarette, Cigar and Pipe Cigarette Packs Per Day: 2 Years Smoked: 12 Physical Exam Vital Signs: BMI result Body Mass Index 30.5 Const General: cooperative, healthy appearing and no acute distress Nutritional Appearance: average body habitus Orientation/consciousness: patient oriented x3 HEENT Head: Yes normal to inspection Neck Other: mild antecollis and restricted range of motion Neuro Other: Moderate decreased blink and facial expression slow tongue movements Voice- mild hypophonia dysprosody No tremors today FineFinger movements - severely decreased wilfredo R>L Alternating hand movements - decreased wilfredo Hand movements - decreased wilfredo Foot taps- decreased wilfredo cog wheel rigidity !+ gait -mild stoop moderate slowness and decreased arm swing L>R General: patient oriented x3 and no focal motor deficits Cranial nerves: Yes CN's II-XII intact bilaterally, Yes Bilaterally intact EOM present, Yes Normal facial strength present and Yes Midline tongue present Cognition (Neuro): normal cognition Motor exam (neuro): 5/5 motor strength present throughout and Normal motor muscle tone present throughout Coordination: [id number] test normal Assessment & Plan Assessment & Plan (1) Parkinson's disease without dyskinesia: Code(s): G20.A1 - Parkinson's disease without dyskinesia, without mention of fluctuations Category: Medical Qualifiers: Fluctuating manifestations: without fluctuating manifestations Qualified Code(s): G20.A1 - Parkinson's disease without dyskinesia, without mention of fluctuations Plan Restart carbidopa/levodopa 25/100 tid continue exercise classes at [facility] add another day of water aerobics and continue speech exercises. Info on APDA given. Coding Level of Care Code Est Pt Level 4 (82947) Complex EM visit Add On G2211 Diagnoses Parkinson's disease without dyskinesia or fluctuating manifestations G20.A1 Fluctuating manifestations: without fluctuating manifestations
== END 2024-03-29 09:37 | disposition home or self-care (01) ==
PROVIDERS: Visit Provider Psychiatry & Neurology Neurology
DX: G20.A1 Parkinson's disease without dyskinesia, without mention of fluctuations (principal)
CPT/HCPCS: 99214; G2211

== ENCOUNTER → 2024-03-29 09:13 | Outpatient (BNVA) | payer MEDICARE, SELFPAY | PROVIDERS: Visit Provider Psychiatry & Neurology Neurology | DX: G20.A1 Parkinson's disease without dyskinesia, without mention of fluctuations (principal) | CPT/HCPCS: 99212 ==

== ENCOUNTER 2024-03-30 14:05 | Outpatient (REF) | payer MEDICARE, SELFPAY ==
--- NOTE | ~2024-03-30 | CT_ITS ---
CLINICAL HISTORY: J92.0 - Pleural plaque with presence of asbestos CT chest without contrast Comparison: None Findings: Normal heart size. No pericardial effusion. Post median sternotomy/CABG. No bulky mediastinal lymphadenopathy. 1 mm pulmonary nodules left upper lobe.Minimal discoid atelectasis right lower lobe. Calcified pleural plaques bilaterally. No pneumothorax or pleural effusions. Central airways are patent. No bronchiectasis. No thyroid nodules. No chest wall masses. No axillary adenopathy. Limited view of the upper abdomen is normal. No acute fractures or pathologic bone lesions. Impression: 1. Bilateral calcified pleural plaques. No pneumothorax pleural effusion. No lymphadenopathy. 1 mm pulmonary nodules left upper lobe can undergo annual follow-up if patient is high-risk. 2. Post median sternotomy/CABG. Fleischner Society 2017 Guidelines for incidentally detected indeterminate nodules in persons 35 years of age or older. Multiple Solid Nodules: 5 mm or smaller nodules need no follow-up in low risk, and [address] follow-up is optional in high risk patients. This document has been electronically signed by: Ernesto Azar MD on 04/02/2024 09:38:05
--- OUTSIDE RECORDS SUMMARY | 2024-03-30 15:50 | XMS_ITS | Encounter Summary ---
Author Organization [employer] [facility] Address [address] [place] [address] Care Team Providers Care Event Planner Name Role Phone Unavailable Primary Care Provider Unavailabl e Encounter Details Date Type Department Care Team (Latest Contact Info) Description 04/28/2020 Abstract [facility] CONVERSIONS Dental, Provider, DDS Social History Tobacco Use Types Packs/Day Years Used Date Smoking Tobacco: Never Assessed Sex and Gender Information Value Date Recorded Sex Assigned at Not on file Legal Sex Male 5:37 PM EDT Gender Identity Not on file Sexual Orientation Not on file documented as of this encounter Plan of Treatment Not on file documented as of this encounter Visit Diagnoses Not on filedocumented in this encounter
--- OUTSIDE RECORDS SUMMARY | 2024-03-30 15:50 | XMS_ITS | Encounter Summary ---
Author Organization [facility] Address [address] [place] [address] Care Team Providers Care Addictions Counselor Assistant Name Role Phone Su Farias MD Primary Care Provider Unavailabl e Encounter Details Date Type Department Care Team ([facility] st Contact Info) Description 04/13/[address] [facility] Orthopedic Surgery [address] [address] Guy Jorge MD [address] [place] [address] Social History Tobacco Use Types Packs/Day Years Used Date Smoking Tobacco: Never Smokeless Tobacco: Never Alcohol Use Standard Drinks/Week Comments No 0 (1 standard drink = 0.6 oz pur e alcohol) Sex and Gender Information Value Date Recorded Sex Assigned at Not on file Legal Sex Male 1:59 AM EDT Gender Identity Not on file Sexual Orientation Not on file documented as of this encounter Plan of Treatment Not on file documented as of this encounter Visit Diagnoses Diagnosis Right hip pain- Primary Pain in joint, pelvic region and thigh documented in this encounter Care Teams Addictions Counselor Assistant Relationship Specialty Start Date End Date Su Farias MD PCP - General Pediatrics 03/16/12 documented as of this encounter
--- OUTSIDE RECORDS SUMMARY | 2024-03-30 15:50 | XMS_ITS | Clinical Summary ---
Author Organization [employer] Address [address] [place] [address] Care Team Providers Care Able Bodied Watchman Name Role Phone Unavailable Primary Care Provider Unavailabl e Social History Tobacco Use Types Packs/Day Years Used Date Smoking Tobacco: Never Assessed Sex and Gender Information Value Date Recorded Sex Assigned at Not on file Legal Sex Male 5:37 PM EDT Gender Identity Not on file Sexual Orientation Not on file Plan of Treatment Health Maintenance Due Date Last Done Comments Depression Screening 1945 Lipid Panel 1945 Alcohol/Substance Use Screening 1957 Tobacco Screening 1957 RSV Patients and Patients Aged 60 years or older (1 - 1-dose 75+ series) 2020 DTaP/Tdap/Td Vaccines (2 - Td or Tdap) 04/09/2021 04/09/2011 Zoster Vaccines (3 of 3) 12/24/2021 10/29/2021, 03/08 COVID-19 Vaccine (3 - season) 2023 06/05/2020, 05/08/2020 Influenza Vaccine (#1) 2023 , 11/30/2019, 12/16/2017, Additional history exists Pneumococcal Vaccine: 65+ Years Completed 02/14/2015, 03/16/2014, 10/09/2012, Additional history exists Hepatitis A Vaccines Aged Out 07/19/2016, 01/13/20 16 No longer eligible based on patient's age to complete this topic Hepatitis B Vaccines Completed 07/19/2016, 02/16/2016, 01/17/2016 HIB Vaccines Aged Out No longer eligi ble based on patient's age to complete this topic HPV Vaccines Aged Out No longer eligi ble based on patient's age to complete this topic IPV Vaccines Aged Out No longer eligi ble based on patient's age to complete this topic Meningococcal Vaccine Aged Out No татьяна ruddy eligible based on patient's age to complete this topic RSV under 20 months Aged Out No longe r eligible based on patient's age to complete this topic Rotavirus Vaccines Aged Out No longer eligible based on patient's age to complete this topic
--- OUTSIDE RECORDS SUMMARY | 2024-03-30 15:50 | XMS_ITS | Encounter Summary ---
Author Organization [employer] [facility] Address [address] [place] [address] Care Team Providers Care Reticle Printer Name Role Phone Unavailable Primary Care Provider Unavailabl e Encounter Details Date Type Department Care Team (Latest Contact Info) Description 05/25/2021 Abstract [facility] Dental, Provider, DDS Social [...]
--- OUTSIDE RECORDS SUMMARY | 2024-03-30 15:50 | XMS_ITS | Encounter Summary ---
Author Organization [employer] [facility] Address [address] [place] [address] Care Team Providers Care Restaurant Kitchen And Service Manager Name Role Phone Unavailable Primary Care Provider Unavailabl e Encounter Details Date Type Department Care Team (Latest Contact Info) Description 12/11/2018 Abstract [facility] Dental, Provider, DDS Social [...]
--- OUTSIDE RECORDS SUMMARY | 2024-03-30 15:50 | XMS_ITS | Clinical Summary ---
Author Organization [facility] Address [address] [place] [address] Care Team Providers Care Sample Box Maker Name Role Phone Su Farias MD Primary Care Provider Unavailabl e Allergies Active Allergy Reactions Criticality Noted Date Comments Ciprofloxacin High 03/23/2012 Medications Niacin, Antihyperlipidemi c, (NIASPAN) 1000 MG Tab CR 1 TABLET AT BEDTIME Active Ezetimibe (ZETIA) 10 MG Tab 1 TABLET DAILY Active Metoprolol Tartrate 25 MG Tab 1 TABLET 4 TIMES DAILY Active Cholestyramine 4 GM Pack 1 PACKET 3 TIMES DAILY Active Aspirin (BABY ASPIRIN) 81 MG Chew Tab 1 TABLET DAILY Active [place]-3 Fatty Acids 300 MG Cap 2 CAPSULES DAILY WITH A MEAL Active Multiple Vitamins-Minerals (AMRIT MULTIVITAMIN FOR MEN) Tab None Entered Active Active Problems No known active problems Social History Tobacco Use Types Packs/Day Years Used Date Smoking Tobacco: Never Smokeless Tobacco: Never Tobacco Cessation:Counseling Given: No Alcohol Use Standard Drinks/Week Comments No 0 (1 standard drink = 0.6 oz pur e alcohol) Sex and Gender Information Value Date Recorded Sex Assigned at Not on file Legal Sex Male 1:59 AM EDT Gender Identity Not on file Sexual Orientation Not on file Plan of Treatment Health Maintenance Due Date Last Done Comments Hepatitis C Screening 1945 DTaP/Tdap/Td (1 - Tdap) 11/05/1963 Pneumococcal 50+ years (1 of 1 - PCV) 11/05/1995 Zoster (Shingrix) (1 of 2) 11/05/1995 RSV (1 - 1-dose 75+ series) 2020 COVID-19 Vaccine (2023-2 5 season) 2023 Influenza (#1) 2023 HPV Vaccine Aged Out No longer eligi ble based on patient's age to complete this topic Hep A Aged Out No longer eligi ble based on patient's age to complete this topic Hep B Aged Out No longer eligi ble based on patient's age to complete this topic Hib Aged Out No longer eligi ble based on patient's age to complete this topic Meningococcal ACWY Aged Out No longer eligible based on patient's age to complete this topic Zoster (Zostavax) Discontinued Insurance [employer] MEDIC[employer] PREFERRED HMO Care Teams Sample Box Maker Relationship Specialty Start Date End Date Su Farias MD PCP - General Pediatrics 03/16/12
== END 2024-03-30 14:06 | disposition home or self-care (01) ==
LOC: HO.CT 14:05
PROVIDERS: Visit Provider Nurse Practitioner Family
DX: J92.0 Pleural plaque with presence of asbestos (principal)
CPT/HCPCS: 71250

== ENCOUNTER → 2024-03-30 14:07 | Outpatient (BNV) | payer MEDICARE, SELFPAY | PROVIDERS: Visit Provider Radiology Diagnostic Radiology | DX: J92.0 Pleural plaque with presence of asbestos (principal); R91.1 Solitary pulmonary nodule | CPT/HCPCS: 71250 ==

== ENCOUNTER 2024-05-02 15:02 | Outpatient (AMB) | payer MEDICARE, SELFPAY ==
--- NOTE | 2024-05-02 13:29 | MHC.OFFVIS ---
Vital Signs 05/02/24 15:08 Height 6 ft Weight 225 lb BMI 30.5 BP 128/72 Blood Pressure Location Rt brachial Position Sitting Pulse 56 Pulse Source Pulse Oximeter Pulse Oximetry (%) 98 Oxygen Delivery Method Room Air Intake Visit Reasons: lovely District Or District Office Director Required: No Light Rail Transit Operator: Light Rail Transit Operator offered & declined Accompanied by: Spouse Allergies ciprofloxacin Adverse Reaction (Severe, Verified 05/02/24 15:12) Renal failure Medication List - Last Reconciled 05/02/24 by Carsisa Baptiste LPN apixaban (Eliquis) 2.5 mg PO BID carbidopa-levodopa 25-100 mg 1 tab PO TID cholecalciferol (vitamin D3) 25 mcg PO DAILY fluconazole 150 mg PO QWEEK ipratropium bromide 2 sprays intranasal BID mecobalamin (vitamin B12) mcg PO rosuvastatin 20 mg PO DAILY valsartan-hydrochlorothiazide 160-25 mg 1 tab PO BID HPI HPI lovely: Details: Allen is a pleasant 78 year old male, former smoker with an approximate 24 pack year history, quit 50 years ago, with underlying obstructive sleep apnea on CPAP, asbestos exposure, CABG x 3, atrial fibrillation s/p ablation maintained on eliquis and parkinson's. He initially presented for management of LOVELY and CPAP therapy however last home sleep study was negative for significant nocturnal hypoxemia and revealed mild LOVELY in supine position and less than 5 apneic events in lateral position. Previously discussed conservative measures including positional changes and weight loss which he was in agreement with. Today he denies respiratory symptoms and presents to review recent chest CT. Prior chest CT from 2023 revealed bilateral calcified pleural plaques consistent with sequela of remote asbestos exposure. Since the last visit, he did contract COVID in February necessitating doxycycline and reports symptoms are almost back to baseline. [facility] Medical History Atrial fibrillation Parkinson's disease without dyskinesia TIA (transient ischemic attack) Surgical History S/P cervical spinal fusion H/O elbow surgery H/O shoulder surgery H/O lumbosacral spine surgery Total knee replacement status H/O heart bypass surgery History of back surgery History of appendectomy Social History Household Members: Spouse Patient Tobacco Use Status: Former Tobacco user Tobacco use type: Cigarette, Cigar and Pipe Cigarette Packs Per Day: 2 Years Smoked: 12 Review of Systems Const Denies chills, Denies excessive sweating, Denies fever(s), Denies headache(s) and Denies night sweats Eyes Denies dry eyes, Denies irritation and Denies itchy eyes ENT Reports Normal hearing present, Denies headache(s), Denies nasal congestion, Denies nasal discharge, Denies post nasal drip and Denies sore throat Card Denies chest pain, Denies chest pain at rest, Denies chest pain with activity, Denies claudication, Denies leg edema, Denies dyspnea, Denies dyspnea on exertion, Denies orthopnea and Denies paroxysmal nocturnal dyspnea Resp Denies chest congestion, Denies cough, Denies excessive phlegm production, Denies pain on inspiration, Denies pain with cough, Denies dyspnea, Denies dyspnea on exertion, Denies stridor and Denies wheezing Musc Denies myalgias Neuro Reports Normal hearing present and Denies headache(s) Endo Denies excessive sweating Felipe/Lymph Denies lymphadenopathy Aller/Immun Denies itchy eyes, Denies seasonal rhinorrhea and Denies wheezing Physical Exam Vital Signs: Last Vital Signs Pulse 56 05/02/24 15:08 BP 128/72 05/02/24 15:08 Pulse Ox 98 05/02/24 15:08 Oxygen Delivery Method Room Air 05/02/24 15:08 BMI result Body Mass Index 30.5 Const General: cooperative, healthy appearing, comfortable, no acute distress, well developed and alert Orientation/consciousness: patient oriented x3 Limitations: no limitations HEENT Head: Yes normal to inspection, Yes normocephalic and Yes atraumatic Ears: hearing grossly normal bilaterally and external ears normal Eyes General: appearance normal, both eyes and all related structures Eyelids: Yes eyelids normal Sclerae: sclerae normal EOM: EOMs intact bilaterally Neck Neck: Yes normal visual inspection and Yes no lymphadenopathy Lymphatic: no lymphadenopathy noted Chest Chest palpation & inspection: normal inspection of the chest Resp Effort & Inspection: normal respiratory effort, able to speak in complete sentences, no audible wheezes, no cough, no stridor, not tachypneic, no tripod positioning and no use of accessory muscles Auscultation: clear to auscultation bilaterally Cardio Jugular venous distension: no JVD Rate: regular rate Rhythm: regular rhythm Skin Other: warm, dry General skin exam: no rashes or lesions noted Neuro General: patient oriented x3 Cranial nerves: Yes Normal hearing present Cognition (Neuro): normal cognition Gait exam (Neuro): Normal gait present Extrem General: Yes normal to inspection, Yes capillary refill normal, Yes no clubbing, cyanosis or edema and Yes no pedal edema Psych Appearance: grossly normal and well kempt Speech and movement: Normal speech and movement present and Clear speech present Affect: normal affect Attitude: cooperative Thought process: Normal thought process present Thought content: Normal thought content present Insight: Good insight present (Psych) Judgement: Good judgement present (Psych) Results Reviewed Results Reviewed: [address] [address] [address] Scan Report Signed Patient: Allen Villanueva MR#: [id number] : 1945 Acct:[id number] Age/Sex: 78 / M ADM Date: 03/30/24 Loc: HO.CT Attending Dr: Calista Nolasco NP Ordering Physician: Calista Nolasco NP Date of Service: 03/30/24 Procedure(s): CT chest wo IV con Accession Number(s): [id number] cc: Calista Nolasco NP~ Report Number: [id number]: Total DLP = 228.00 mGy-cm CLINICAL HISTORY: J92.0 - Pleural plaque with presence of asbestos CT chest without contrast Comparison: None Findings: Normal heart size. No pericardial effusion. Post median sternotomy/CABG. No bulky mediastinal lymphadenopathy. 1 mm pulmonary nodules left upper lobe.Minimal discoid atelectasis right lower lobe. Calcified pleural plaques bilaterally. No pneumothorax or pleural effusions. Central airways are patent. No bronchiectasis. No thyroid nodules. No chest wall masses. No axillary adenopathy. Limited view of the upper abdomen is normal. No acute fractures or pathologic bone lesions. Impression: 1. Bilateral calcified pleural plaques. No pneumothorax pleural effusion. No lymphadenopathy. 1 mm pulmonary nodules left upper lobe can undergo annual follow-up if patient is high-risk. 2. Post median sternotomy/CABG. Fleischner Society 2017 Guidelines for incidentally detected indeterminate nodules in persons 35 years of age or older. Multiple Solid Nodules: 5 mm or smaller nodules need no follow-up in low risk, and [address] follow-up is optional in high risk patients. This document has been electronically signed by: Ernesto Azar MD on 04/02/2024 09:38:05 Dictated By: Ernesto Azar MD Signed By: <Electronically signed by Ernesto Azar MD in OV> 04/02/24938 DD/ 7 TD/TT: 04/02/24937 Rack Puller: Assessment & Plan Assessment & Plan (1) Mild obstructive sleep apnea: Code(s): G47.33 - Obstructive sleep apnea (adult) (pediatric) Category: Medical (2) History of smoking 10-25 pack years: Code(s): Z87.891 - Personal history of nicotine dependence Category: Social Hx (3) Pleural plaque with presence of asbestos: Code(s): J92.0 - Pleural plaque with presence of asbestos Category: Medical Plan Reviewed chest CT which revealed bilateral calcified pleural plaques and 1 mm pulmonary nodule left upper lobe. Will repeat in one year to assess stability, if no changes then no further need for imaging. At this time he denies respiratory symptoms but will call office if symptoms worsen. All questions were answered and patient is in agreement of plan. Will follow up after chest CT in one year or sooner if needed. Orders: Orders CT chest w IV con 11 Months J92.0 - Pleural plaque with presence of asbestos Coding Level of Care Code Est Pt Level 4 (01217) Diagnoses Mild obstructive sleep apnea G47.33 History of smoking 10-25 pack years Z87.891 Pleural plaque with presence of asbestos J92.0
[2024-05-02 15:08] VITALS: BP 128/72; PULSE 56; O2SAT 98; BMI 30.5
--- OUTSIDE RECORDS SUMMARY | 2024-05-02 18:33 | XMS_ITS | Clinical Summary ---
Author Organization [email or web address] Address [address] [place] [address] Care Team Providers Care Nutritional Health Coach Name Role Phone Unavailable Primary Care Provider [...] 11/30/2019, 12/16/2017, Additional history exists Pneumococcal Vaccine: 50+ Years Completed 02/14/2015, 03/16/2014, 10/09/2012, Additional history [...]
--- OUTSIDE RECORDS SUMMARY | 2024-05-02 18:33 | XMS_ITS | Encounter Summary ---
Author Organization [employer] [facility] Address [address] [place] [address] Care Team Providers Care Draw String Knotter Name Role Phone Unavailable Primary Care Provider [...]
--- OUTSIDE RECORDS SUMMARY | 2024-05-02 18:33 | XMS_ITS | Encounter Summary ---
Author Organization [employer] [facility] Address [address] [place] [address] Care Team Providers Care Ground Crewman Name Role Phone Unavailable Primary Care Provider [...]
--- OUTSIDE RECORDS SUMMARY | 2024-05-02 18:33 | XMS_ITS | Encounter Summary ---
Author Organization [facility] Address [address] [place] [address] Care Team Providers Care Treatment Supervisor Name Role Phone Su Farias MD Primary Care Provider Unavailabl e Encounter Details Date Type Department Care Team ([facility] st Contact Info) Description 04/13/2012 Orders Only [facility] Orthopedic Surgery [address] [address] Guy Jorge MD [address] [place] [address] Social History Tobacco Use Types Packs/Day Years [...] thigh documented in this encounter Care Teams Treatment Supervisor Relationship Specialty Start Date End Date Su Farias MD PCP - General Pediatrics 03/16/12 documented as of this encounter
--- OUTSIDE RECORDS SUMMARY | 2024-05-02 18:33 | XMS_ITS | Clinical Summary ---
Author Organization [facility] Address [address] [place] [address] Care Team Providers Care Phone Engineer Name Role Phone Su Farias MD Primary [...] MG Chew Tab 1 TABLET DAILY Active [place]-3 Fatty Acids 300 MG Cap 2 CAPSULES [...] [employer] PREFERRED HMO Care Teams Phone Engineer Relationship Specialty Start Date End Date Su Farias MD PCP - General Pediatrics 03/16/12
--- OUTSIDE RECORDS SUMMARY | 2024-05-02 18:33 | XMS_ITS | Encounter Summary ---
Author Organization [employer] [facility] Address [address] [place] [address] Care Team Providers Care Arc Furnace Operator Name Role Phone Unavailable Primary Care Provider [...]
== END 2024-05-02 15:59 | disposition home or self-care (01) ==
PROVIDERS: PCP Internal Medicine; Visit Provider Nurse Practitioner Family
DX: G47.33 Obstructive sleep apnea (adult) (pediatric) (principal); Z87.891 Personal history of nicotine dependence; J92.0 Pleural plaque with presence of asbestos
CPT/HCPCS: 99214

== ENCOUNTER → 2024-05-02 15:02 | Outpatient (BNVA) | payer MEDICARE, SELFPAY | PROVIDERS: PCP Internal Medicine; Visit Provider Nurse Practitioner Family | DX: G47.33 Obstructive sleep apnea (adult) (pediatric) (principal); J92.0 Pleural plaque with presence of asbestos; Z99.89 Dependence on other enabling machines and devices; Z87.891 Personal history of nicotine dependence | CPT/HCPCS: 99212 ==

== ENCOUNTER 2024-05-31 08:29 | Outpatient (AMB) | payer BC, MEDICARE, SELFPAY ==
[2024-05-31 08:39] VITALS: BP 138/76; PULSE 68; O2SAT 100; BMI 31.2
--- NOTE | 2024-05-31 08:39 | A.OFFVIS_ITS ---
Vital Signs 05/31/24 08:39 Height 6 ft Weight 230 lb BMI 31.2 BP 138/76 Blood Pressure Location Rt brachial Position Sitting Pulse 68 Pulse Source Pulse Oximeter Pulse Oximetry (%) 100 Oxygen Delivery Method Room Air Intake Visit Reasons: Parkinson (per MD) Intake Note: Patient following up for re-trial carbidopa levodopa Allergies ciprofloxacin Adverse Reaction (Severe, Verified 05/31/24 08:40) Renal failure HPI Comments Details: 78y/o Right handed male comes for follow up of Parkinson disease.He stopped carbidopa/levodopa 1month ago and felt slower.He retrie dit again but did not feel good so he stopped. But he says he is doing well without medication. He had COVID from and was sick for atleast 1 week History form last visit-according to his his tremors are more towards the end of the day.He had 1 fall when he missed the curb.speech therapy helped. [facility]. He noticed tremors in his right hand about 3-4 (2019 )years ago - mostly at rest and also difficulty with hand coordination.He is doing better now He has some memory issues- repeats often and has some word finding difficulty . Sleep- stopped CPAP - retesting showed mild sleep apnea., vivid dreams , no sl eep talking since LOVELY Mood- normal Motivation- normal Speech- softer, hard to understand , has drooling on the right side of the mouth Handwriting- smaller hard to write Utensils- slower Dressing- slower, buttoning is hard SHower- slower Gait- slower, and has trouble walking No trouble turning in bed No dizziness No vertigo No double vision No hallucinations H/o constipation H/o numbness in hands [facility] Medical History Atrial fibrillation Parkinson's disease without dyskinesia TIA (transient ischemic attack) Surgical History S/P cervical spinal fusion H/O elbow surgery H/O shoulder surgery H/O lumbosacral spine surgery Total knee replacement status H/O heart bypass surgery History of back surgery History of appendectomy Social History Household Members: Spouse Patient Tobacco Use Status: Former Tobacco user Tobacco use type: Cigarette, Cigar and Pipe Cigarette Packs Per Day: 2 Years Smoked: 12 Physical Exam Vital Signs: Last Vital Signs Pulse 68 05/31/24 08:39 BP 138/76 05/31/24 08:39 Pulse Ox 100 05/31/24 08:39 Oxygen Delivery Method Room Air 05/31/24 08:39 BMI result Body Mass Index 31.2 Const General: cooperative, healthy appearing and no acute distress Nutritional Appearance: average body habitus Orientation/consciousness: patient oriented x3 HEENT Head: Yes normal to inspection Neck Other: mild antecollis and restricted range of motion Neuro Other: Moderate decreased blink and facial expression slow tongue movements Voice- mild hypophonia dysprosody No tremors today FineFinger movements - severely decreased wilfredo R>L Alternating hand movements - decreased wilfredo Hand movements - decreased wilfredo Foot taps- decreased wilfredo cog wheel rigidity !+ gait -mild stoop moderate slowness and decreased arm swing L>R General: patient oriented x3 and no focal motor deficits Cranial nerves: Yes CN's II-XII intact bilaterally, Yes Bilaterally intact EOM present, Yes Normal facial strength present and Yes Midline tongue present Cognition (Neuro): normal cognition Motor exam (neuro): 5/5 motor strength present throughout and Normal motor muscle tone present throughout Coordination: [id number] test normal Assessment & Plan Assessment & Plan (1) Parkinson's disease without dyskinesia: Code(s): G20.A1 - Parkinson's disease without dyskinesia, without mention of fluctuations Category: Medical Qualifiers: Fluctuating manifestations: without fluctuating manifestations Qualified Code(s): G20.A1 - Parkinson's disease without dyskinesia, without mention of fluctuations Plan will hold off on medications. He is not tolerating carbidopa/levodopa continue exercise classes at [facility] add another day of water aerobics and continue speech exercises. Info on APDA given. Coding Level of Care Code Est Pt Level 4 (31538) Complex EM visit Add On G2211 Diagnoses Parkinson's disease without dyskinesia or fluctuating manifestations G20.A1 Fluctuating manifestations: without fluctuating manifestations
--- OUTSIDE RECORDS SUMMARY | 2024-05-31 08:57 | XMS_ITS | Encounter Summary ---
Author Organization [facility] Address [address] [place] [address] Care Team Providers Care Desk Reporter Name Role Phone Su Farias MD Primary Care Provider Unavailabl e Encounter Details Date Type Department Care Team ([facility] st Contact Info) Description 04/13/2012 Orders Only [facility] Orthopedic Surgery [address] [address] Guy Jorge MD [address] [place] [address] Social History Tobacco Use Types Packs/Day Years [...] thigh documented in this encounter Care Teams Desk Reporter Relationship Specialty Start Date End Date Su Farias MD PCP - General Pediatrics 03/16/12 documented as of this encounter
--- OUTSIDE RECORDS SUMMARY | 2024-05-31 08:58 | XMS_ITS | Clinical Summary ---
Author Organization [employer] Address [address] [place] [address] [place] [address] Care Team Providers Care Four H Agent Name Role Phone Unavailable Primary Care Provider [...]
--- OUTSIDE RECORDS SUMMARY | 2024-05-31 08:58 | XMS_ITS | Encounter Summary ---
Author Organization [employer] [facility] Address [address] [place] [address] Care Team Providers Care Freight Agent Name Role Phone Unavailable Primary Care [...]
--- OUTSIDE RECORDS SUMMARY | 2024-05-31 08:58 | XMS_ITS | Encounter Summary ---
Author Organization [employer] [facility] Address [address] [place] [address] Care Team Providers Care Principal Statistical Programmer Name Role Phone Unavailable Primary Care Provider [...]
--- OUTSIDE RECORDS SUMMARY | 2024-05-31 08:58 | XMS_ITS | Encounter Summary ---
Author Organization [employer] [facility] Address [address] [place] [address] Care Team Providers Care Cash On Delivery Clerk Name Role Phone Unavailable Primary Care Provider [...]
--- OUTSIDE RECORDS SUMMARY | 2024-05-31 08:58 | XMS_ITS | Clinical Summary ---
Author Organization [facility] Address [address] [place] [address] Care Team Providers Care Capsule Filling Machine Operator Name Role Phone Su Farias MD Primary [...] MG Chew Tab 1 TABLET DAILY Active [place]-3 Fatty Acids 300 MG Cap 2 CAPSULES [...] [place] [employer] MEDICARE PREFERRED HMO Care Teams Capsule Filling Machine Operator Relationship Specialty Start Date End Date Su Farias MD PCP - General Pediatrics 03/16/12
== END 2024-05-31 09:09 | disposition home or self-care (01) ==
LOC: HO.HSMS 08:30
PROVIDERS: Visit Provider Psychiatry & Neurology Neurology
DX: G20.A1 Parkinson's disease without dyskinesia, without mention of fluctuations (principal)
CPT/HCPCS: 99214

== ENCOUNTER → 2024-05-31 08:29 | Outpatient (BNVA) | payer MEDICARE, SELFPAY | PROVIDERS: Visit Provider Psychiatry & Neurology Neurology | DX: G20.A1 Parkinson's disease without dyskinesia, without mention of fluctuations (principal) ==

== ENCOUNTER 2024-10-24 08:52 | Outpatient (AMB) | payer MEDICARE, SELFPAY ==
--- NOTE | 2024-10-24 09:00 | MHC.OFFVIS ---
Vital Signs 10/24/24 09:01 Height 6 ft Weight 220 lb 6 oz BMI 29.9 BP 128/70 Blood Pressure Location Rt brachial Position Sitting Pulse 98 Pulse Source Pulse Oximeter Pulse Oximetry (%) 97 Oxygen Delivery Method Room Air Intake Visit Reasons: 6 mnts f/u appt Intake Note: Follow up Parkinson's disease without dyskinesia Accounts Payable Coordinator Required: No Accompanied by: Spouse Allergies ciprofloxacin Adverse Reaction (Severe, Verified 10/24/24 09:00) Renal failure Medication List - Last Reconciled 10/24/24 by Fernanda Pena MD apixaban (Eliquis) 2.5 mg PO BID cholecalciferol (vitamin D3) 25 mcg PO DAILY ipratropium bromide 2 sprays intranasal BID mecobalamin (vitamin B12) mcg PO rasagiline 1 mg PO DAILY rosuvastatin 20 mg PO DAILY valsartan-hydrochlorothiazide 160-25 mg 1 tab PO BID HPI Comments Details: 78y/o Right handed male comes for follow up of Parkinson disease.He stopped carbidopa/levodopa 7month ago and felt slower. But he says he is doing well without medication.He does cycling class once a week, [employer] [facility] . He started using nicotine patch . No change in mood. He is motivated. sleep is disrupted due to nocturia 2 times a night . Memory- has word finding issues. He is drooling . History form last visit-according to his his tremors are more towards the end of the day.He had 1 fall when he missed the curb.speech therapy helped. He [facility] the [facility] which is helping. He noticed tremors in his right hand about 3-4 (2019 )years ago - mostly at rest and also difficulty with hand coordination.He is doing better now He has some memory issues- repeats often and has some word finding difficulty . Sleep- stopped CPAP - retesting showed mild sleep apnea., vivid dreams , no sleep talking since LOVELY Mood- normal Motivation- normal Speech- softer, hard to understand , has drooling on the right side of the mouth Handwriting- smaller hard to write Utensils- slower Dressing- slower, buttoning is hard SHower- slower Gait- slower, and has trouble walking No trouble turning in bed No dizziness No vertigo No double vision No hallucinations H/o constipation H/o numbness in hands PFSH Medical History Atrial fibrillation Parkinson's disease without dyskinesia TIA (transient ischemic attack) Surgical History S/P cervical spinal fusion H/O elbow surgery H/O shoulder surgery H/O lumbosacral spine surgery Total knee replacement status H/O heart bypass surgery History of back surgery History of appendectomy Social History Household Members: Spouse Patient Tobacco Use Status: Former Tobacco user Tobacco use type: Cigarette, Cigar and Pipe Cigarette Packs Per Day: 2 Years Smoked: 12 Physical Exam Vital Signs: Last Vital Signs Pulse 98 10/24/24 09:01 BP 128/70 10/24/24 09:01 Pulse Ox 97 10/24/24 09:01 Oxygen Delivery Method Room Air 10/24/24 09:01 BMI result Body Mass Index 29.9 Const General: cooperative, healthy appearing and no acute distress Nutritional Appearance: average body habitus Orientation/consciousness: patient oriented x3 HEENT Head: Yes normal to inspection Neck Other: mild antecollis and restricted range of motion Neuro Other: Moderate decreased blink and facial expression slow tongue movements Voice- mild hypophonia dysprosody No tremors today FineFinger movements - severely decreased wilfredo R>L Alternating hand movements - decreased wilfredo Hand movements - decreased wilfredo Foot taps- decreased wilfredo cog wheel rigidity !+ gait -mild stoop moderate slowness and decreased arm swing L>R General: patient oriented x3 and no focal motor deficits Cranial nerves: Yes CN's II-XII intact bilaterally, Yes Bilaterally intact EOM present, Yes Normal facial strength present and Yes Midline tongue present Cognition (Neuro): normal cognition Motor exam (neuro): 5/5 motor strength present throughout and Normal motor muscle tone present throughout Coordination: [id number] test normal Assessment & Plan Assessment & Plan (1) Parkinson's disease without dyskinesia: Code(s): G20.A1 - Parkinson's disease without dyskinesia, without mention of fluctuations Category: Medical Qualifiers: Fluctuating manifestations: without fluctuating manifestations Qualified Code(s): G20.A1 - Parkinson's disease without dyskinesia, without mention of fluctuations Plan He is not tolerating carbidopa/levodopa continue exercise classes at [facility] I will trial him on Rasagiline 1mg qd Suggested a scheduled nap in the afternoon Info on APDA given. Medications: New rasagiline 1 mg PO DAILY 30 tabs 6RF Coding Level of Care Code Est Pt Level 4 (12906) Complex EM visit Add On G2211 Diagnoses Parkinson's disease without dyskinesia or fluctuating manifestations G20.A1 Fluctuating manifestations: without fluctuating manifestations
[2024-10-24 09:01] VITALS: BP 128/70; PULSE 98; O2SAT 97; BMI 29.9
--- OUTSIDE RECORDS SUMMARY | 2024-10-24 09:34 | XMS_ITS ---
Author Name Leena Khan Address Unknown Organization [facility] Care Team Providers Care Joint Maker Machine Name Role Phone Unavailable Primary Care Physician Unavailab le History Of Present Illness This is a 78 year old male who is an established patient who is being seen for an evaluation of skin lesions.Location: body throughoutDuration: yearsPertinent History: actinic keratoses and family history of melanoma (Brother)Pertinent Negatives: no history of previous skin cancer and no family history of non- melanoma skin cancerAdditional Visit Reasons: education and counseling about sun exposure, evaluation for suspicious growths, and evaluation of current neviAdditional History: Patient notes some scaly lesions on the face and on the scalp and forearms. Allergies, Adverse Reactions, Alerts Substance RxNorm Reaction(s) Severity Status Start Da te Cipro unspecified active Medications Medication Generic Name RxNorm Strength Strength Unit Route Dose Dose Form Frequency Date Started Date Ended Status Indication Sig Efudex fluorour acil 001461 5 % Topica l cream BID 04/29/19 24 suspend ed Appl y thin laye r to face , ears , and scal p BID for four week s as tole rate d. When fini shed , repe at same on hand s. Expe ct redn ess and irri sophie on. carbidopa-l evodopa 136864 25-100 mg Oral 1 table t qd active Eliquis 6668621 5 mg Oral 1 table t qd active fluconazole fluconaz ole 520748 150 mg Oral 1 table t qd active Magnesium Optimizer magnesiu m mal-pot cit-taur -B6 50-25-175 -1 mg Oral 1 table t qd active rosuvastati n 146730 20 mg Oral 1 table t qd active hypertensio n valsartan valsarta n 226973 160 mg Oral 1 table t BID active Zinc-220 zinc sulfate 794638 50 mg zinc (220 mg) Oral 1 capsu le qd active nicotine nicotine 14 mg/24 hr Transd ermal 1 patch , trans derma l 24 hours qd active Parkinson s Amoxicillin NULL 08/29/19 19 active Atorvastati n Calcium NULL 19 active Atorvastati n Calcium NULL 14 active Azithromyci n NULL 08/29/19 19 active Carac NULL 12/13/19 14 active dilTIAZem HCl ER Coated Beads NULL 08/29/19 19 active Efudex NULL 02/07/20 14 active Fluorouraci l NULL 08/29/19 19 active Fluzone High-Dose NULL 19 active HYDROcodone -Acetaminop hen NULL 08/29/19 19 active Ibuprofen NULL 08/29/19 19 active Penicillin V Potassium NULL 08/06 06/24 19 active Prevnar 13 NULL 08/29/19 19 active Rosuvastati n Calcium NULL 19 active Problems Problem Code Type Status Date of Diagnosis Date of Resolution Actinic keratosis (disorder) ( SNOMED) Diagnosis active 10/22/2024 Inflamed seborrheic keratosis (disorder) 995124388( SNOMED) Diagnosis active 10/22/2024 Melanocytic nevus of right upper limb (disorder) 636769117( SNOMED) Diagnosis active 10/22/2024 Melanocytic nevus of left upper limb (disorder) 5708805885 15588(SNOM ED) Diagnosis active 10/22/2024 Melanocytic nevus of trunk (disorder) 348112738( SNOMED) Diagnosis active 10/22/2024 Melanocytic nevus of left lower limb (disorder) 6387614497 56438(SNOM ED) Diagnosis active 10/22/2024 Melanocytic nevus of right lower limb (disorder) 6619440933 25019(SNOM ED) Diagnosis active 10/22/2024 Disorder of pigmentation (disorder) 071571367( SNOMED) Diagnosis active 10/22/2024 Caf au lait spot (disorder) 012452291( SNOMED) Diagnosis active 10/22/2024 Hemangioma of skin and subcutaneous tissue (disorder) 895928296( SNOMED) Diagnosis active 10/22/2024 Seborrheic keratosis (disorder) 952666582( SNOMED) Diagnosis active 10/22/2024 Patient encounter status (finding) 911777474( SNOMED) Diagnosis active 10/22/2024 Family history of malignant neoplasm (situation) 128913873( SNOMED) Diagnosis active 10/22/2024 Actinic keratosis (disorder) ( SNOMED) Diagnosis active 02/07/2024 Actinic keratosis (disorder) ( SNOMED) Diagnosis active 01/10/2024 Actinic keratosis (disorder) ( SNOMED) Diagnosis active 12/09/2023 Disorder of pigmentation (disorder) 562720489( SNOMED) Diagnosis active 12/09/2023 Melanocytic nevus of right upper limb (disorder) 633885251( SNOMED) Diagnosis active 12/09/2023 Melanocytic nevus of left upper limb (disorder) 0226264938 32572(SNOM ED) Diagnosis active 12/09/2023 Melanocytic nevus of trunk (disorder) 788205124( SNOMED) Diagnosis active 12/09/2023 Melanocytic nevus of left lower limb (disorder) 6087313997 11857(SNOM ED) Diagnosis active 12/09/2023 Melanocytic nevus of right lower limb (disorder) 4008743742 28103(SNOM ED) Diagnosis active 12/09/2023 Hemangioma of skin and subcutaneous tissue (disorder) 931427127( SNOMED) Diagnosis active 12/09/2023 Seborrheic keratosis (disorder) 615054492( SNOMED) Diagnosis active 12/09/2023 Family history of malignant neoplasm (situation) 024048009( SNOMED) Diagnosis active 12/09/2023 Actinic keratosis (disorder) ( SNOMED) Diagnosis active 07/29/2023 Actinic keratosis (disorder) ( SNOMED) Diagnosis active 04/29/2023 Actinic keratosis (disorder) ( SNOMED) Diagnosis active 11/29/2022 Epidermoid cyst of skin (disorder) 430636604( SNOMED) Diagnosis active 11/29/2022 Neoplasm of uncertain behavior of skin D48.5(ICD- 10) Diagnosis active 09/03/2019 Actinic keratosis L57.0(ICD- 10) Diagnosis active 09/03/2019 Other follicular cysts of the skin and subcutaneous tissue L72.8(ICD- 10) Diagnosis active 09/03/2019 Other seborrheic dermatitis L21.8(ICD- 10) Diagnosis active 09/03/2019 Other melanin hyperpigmentation L81.4(ICD- 10) Diagnosis active 09/03/2019 Other rosacea L71.8(ICD- 10) Diagnosis active 09/03/2019 Personal history of pneumonia (recurrent) Z87.01(ICD -10) Diagnosis active 09/19/2018 Neoplasm of uncertain behavior of skin (disorder) 96708570(S NOMED) Diagnosis active 09/19/2018 Neoplasm of uncertain behavior of skin (disorder) 40764630(S NOMED) Diagnosis active 08/28/2018 Senile hyperkeratosis (disorder) 144586300( SNOMED) Diagnosis active 05/24/2018 Other specified health status Z78.9(ICD- 10) Diagnosis active 09/23/2014 Actinic keratosis (disorder) ( SNOMED) Diagnosis active 09/23/2014 Actinic keratosis (disorder) ( SNOMED) Diagnosis active 06/05/2014 Actinic keratosis (disorder) ( SNOMED) Diagnosis active 03/13/2014 Actinic keratosis (disorder) ( SNOMED) Diagnosis active 02/06/2014 Actinic keratosis (disorder) ( SNOMED) Diagnosis active 12/12/2013 Leukemia, disease (disorder) 25148666(S NOMED) Problem active End-stage renal disease (disorder) 23809357(S NOMED) Problem active Hearing loss (disorder) 64194986(S NOMED) Problem active Asthma (disorder) 977215907( SNOMED) Problem active Atrial fibrillation (disorder) 14895738(S NOMED) Problem active Cerebrovascular accident (disorder) 548773392( SNOMED) Problem active Increased blood pressure (finding) 76458498(S NOMED) Problem active Hypercholesterolemia (disorder) 36236553(S NOMED) Problem active Parkinson's disease (disorder) 31807749(S NOMED) Problem active History of clinical finding in subject (situation) 881012765( SNOMED) Problem active Results No data Encounters Service provided at [address], [facility], [place], [place] [id number]. Office phonenumber is [phone]. Office fax number is [phone]. Encounter Diagnosis Location Date / Time Type Actinic Keratoses (L57.0)Irr itated Seborrheic Keratosis (L82.0)Benign Appearing Nevi (D22.61,D22.62,D22.5,D22.72,D22.71)Lentigo (L81.4)Cafe au lait patch (L81.3)Damian Angiomas (D18.01)Lentigines (L81.4)Seborrheic Keratoses (L82.1)Skin Education (Z71.89)Family history of malignant melanoma (Z80.8) [facility] 10/22/2024 14:45:00 [place] [address] Reason For Referral No data Procedures Procedure Date Documentation of current medications (pr ocedure) 10/22/2024 12:00 am UTC Cryotherapy of skin lesion with liquid n itrogen (procedure) 10/22/2024 12:00 am UTC Destruction of premalignant skin lesion (procedure) 10/22/2024 12:00 am UTC Photodynamic therapy of skin (procedure) 02/07/2024 12:00 am UTC Photodynamic therapy of skin (procedure) 01/10/2024 12:00 am UTC Destruction of premalignant skin lesion (procedure) 12/09/2023 12:00 am UTC Destruction of premalignant skin lesion (procedure) 07/29/2023 12:00 am UTC Cryotherapy of skin lesion with liquid n itrogen (procedure) 11/29/2022 12:00 am UTC Cryotherapy of skin lesion with liquid n itrogen (procedure) 09/03/2019 12:00 am UTC Shave biopsy (procedure) 09/03/2019 12:0 0 am UTC Coronary artery bypass grafting (procedu re) Total replacement of left knee joint (pr ocedure) Total replacement of right knee joint (p rocedure) Documentation of past medical history (p rocedure) Coronary artery bypass grafting (procedu re) Total replacement of right hip joint (pr ocedure) Total replacement of right knee joint (p rocedure) Documentation of past medical history (p rocedure) Total replacement of left knee joint (pr ocedure) Total replacement of right knee joint (p rocedure) Total replacement of left knee joint (pr ocedure) Total replacement of right hip joint (pr ocedure) Documentation of past medical history (p rocedure) Coronary artery bypass grafting (procedu re) Coronary artery bypass grafting (procedu re) Total replacement of left knee joint (pr ocedure) Total replacement of right hip joint (pr ocedure) Total replacement of right knee joint (p rocedure) Documentation of past medical history (p rocedure) Total replacement of right knee joint (p rocedure) Documentation of past medical history (p rocedure) Coronary artery bypass grafting (procedu re) Total replacement of left knee joint (pr ocedure) Total replacement of right hip joint (pr ocedure) Coronary artery bypass grafting (procedu re) Total replacement of right knee joint (p rocedure) Documentation of past medical history (p rocedure) Total replacement of left knee joint (pr ocedure) Total replacement of right hip joint (pr ocedure) Coronary artery bypass grafting (procedu re) Total replacement of left knee joint (pr ocedure) Total replacement of right hip joint (pr ocedure) Total replacement of right knee joint (p rocedure) Documentation of past medical history (p rocedure) Coronary artery bypass grafting (procedu re) Total replacement of right knee joint (p rocedure) Total replacement of left knee joint (pr ocedure) Documentation of past medical history (p rocedure) Coronary artery bypass grafting (procedu re) Documentation of past medica l history (procedure) Right hip - tumor removal (benign) x3 ~2015 Right knee - tumor removal (benign) ~50 years agoLeft elbow repair Plate in neckRotator cuff right shoulder Total replacement of left knee joint (pr ocedure) Total replacement of right knee joint (p rocedure) Review Of Systems Provider reviewed on Oct 22, 2024.A complete review of systems was performed.No Problems With Healing, No Problems With Scarring (hypertrophic Or Keloid), No Problems With Bleeding, No Immunosuppression, No Hay Fever, No Chest Pain, No Fever Or Chills, No Night Sweats, No Unintentional Weight Loss,No Thyroid Problems, No Sore Throat, No Blurry Vision, No Abdominal Pain, No Bloody Stool, No Bloody Urine, No Joint Aches, No Muscle Weakness, No Neck Stiffness, No Headaches, No Seizures, No Shortness Of Breath, No Wheezing, No Anxiety, And No Depression. Assessment 1.Actinic Keratoses - S/P Blue light therapyCounselingLiquid Nitrogen: right superior preauricular cheek; right superior helix; left central restorationism; left central restorationism; left superior forehead; left inferior forehead; left inferior forehead; mid-frontal scalp; mid-frontal scalp; left superior helix; Duration of freeze thaw-cycle (seconds) - 10; Number of freeze-thaw Cycles - 2 freeze-thaw cycles.2.Irritated Seborrheic KeratosisCounselingLiquid Nitrogen: right central restorationism; right central restorationism; Duration of freeze thaw-cycle (seconds) - 5-10; Number of freeze-thaw Cycles - 2 freeze-thaw cycles; Medical Necessity Justification (varies by insurance carrier and by region) - itchy.3.Benign Appe aring NeviCounseling4.LentigoMonitoring5.Cafe au lait patchCounseling6.Damian AngiomasReassurance7.LentiginesSunscreen Recommendations8.Seborrheic KeratosesCounseling9.Skin WibzfkotrPujbtzwota95.Family history of malignant melanoma - BrotherCounseling Plan of Care Future visit for 10/22/2025 - Follow up in 1 year for: Skin Check - 15 minutes Code Detail Instructions [id number] Efudex 5 % topical cream Apply t hin layer to face, ears, and scalp BID for four weeks as tolerated. When finished, repeat same on hands. Expect redness and irritation. Instructions * I counseled the patient regarding the following:Skin Care: Sun protective clothing and broad spectrum sunscreen can prevent the formation of Actinic Keratoses. AKs can resolve with cryotherapy, photodynamic therapy, imiquimod, topical 5-FU.Expectations: Actinic Keratoses are precancerous proliferations that occur within sun damaged skin. If untreated, a small subset of AKs can develop into Squamous Cell Carcinoma.Contact Office if: If AKs fail to resolve despite treatment, or if you develop a side effect from therapy, such as unbearable crusting, scabbing, redness and tenderness.I recommendedthe following: Broad Spectrum Sunscreen SPF 30+ * I counseled the patient regarding the following:Skin Care: Irritated Seborrheic Keratoses can be removed with cryotherapy.Expectations: Irritated Seborrheic Keratoses are benign growths that become inflamed, itchy, tender, traumatized, caught on clothing, or exhibit bleeding or crusting. Because the are symptomatic, they can be treated with cryotherapy.Contact Office if: If Irritated Seborrheic Keratosis fails to resolve despite treatment, or if you develop a side effect from therapy, such as unbearable crusting, scabbing, redness and tenderness. * I counseled the patient regarding the following:Instructions: Monthly self- skin checks to monitor for any changes in moles are recommended.Expectations: Benign Nevi are pigmented nests of cells within the skin. No treatment is necessary.Contact Office if: Any moles change in size, shape or color; itch, burn or bleed. * I counseled the patient regarding the following:Skin care: CALMs with irregular borders can often respond to q-switched lasers.Expectations: Cafe au lait macules are benign jim patches seen at .Patients with multiple CALMs should be screened for associated syndromes (Neurofibromatosis, lowery syndrome, peibaldism, tuberous sclerosis, earnest-silver) * I counseled the patient regarding the following:Skin Care: Seborrheic Keratoses are benign. No treatment is necessary.Expectations: Seborrheic Keratoses are benign warty growths. Patients get more ofthem as they age. * I counseled the patient regarding the following:Sun screen (SPF 30 or greater) should be applied during peak UV exposure (between 10am and 2pm) and reapplied after exercise or swimming.The ABCDEs of melanoma were reviewed with the patient, and the importance of monthly self-examination of moles was emphasized. Should any moles change in shape or color, or itch, bleed or burn, pt will contact our office for evaluation sooner then their interval appointment.I recommended the following: Broad Spectrum Sunscreen SPF 30+Self- Skin Exams * I counseled the patient regarding the following:Expectations: Patients with a family history of melanoma from a 1st degree relative have a higher risk of developing a melanoma compared with the rest of the population. Monthly self- skin checks should be performed to monitor for any moles that changein size, shape or color, itch burn or bleed.Contact Office if: Patient notices any new or changing moles. Social History Code Activity Start Date End Date 9835133 (SNOMED) Former smoker 11/29/1993 11/29/1986 Sex male Sexual orientation Unspecified Gender identity Unspecified Vital Signs No data
--- OUTSIDE RECORDS SUMMARY | 2024-10-24 09:34 | XMS_ITS | Encounter Summary ---
Author Organization [facility] Address [address] [place] [address] [place] [address] Care Team Providers Care Pediatric Geneticist Name Role Phone Unavailable Primary Care Provider [...]
--- OUTSIDE RECORDS SUMMARY | 2024-10-24 09:34 | XMS_ITS | Encounter Summary ---
Author Organization [facility] Address [address] [place] [address] Care Team Providers Care Tea Bag Machine Tender Name Role Phone Su Farias MD Primary Care Provider Unavailabl e Encounter Details Date Type Department Care Team ([facility] st Contact Info) Description 04/13/2012 Orders Only [facility] Orthopedic Surgery [address] [address] Guy Jorge MD [address] [place] [address] Social History Tobacco Use Types Packs/Day Years [...] thigh documented in this encounter Care Teams Tea Bag Machine Tender Relationship Specialty Start Date End Date Su Farias MD PCP - General Pediatrics 03/16/12 documented as of this encounter
--- OUTSIDE RECORDS SUMMARY | 2024-10-24 09:34 | XMS_ITS | Encounter Summary ---
Author Organization [facility] Address [address] [facility] [address] [place] [address] Phone Care Team Providers Care Senior Manufacturing Engineer Name Role Phone Alma Farias MD Primary Care Provider Jacky Kulkarni MD Primary Care Provider [phone]- [phone] Encounter Details Date Type Department Care Team (Late st Contact Info) Description 04/18/2018 Ancillary Orders Virtual Department [address] [place] [address] Jose Juan Neves MD 6 [place] [address] [email or web address] Right shoulder pain, unspecified chronicity Social History Tobacco Use Types Packs/Day Years Used Date Smoking Tobacco: Former Smokeless Tobacco: Never Comments:in his 20s Sex and Gender Information Value Date Recorded Sex Assigned at Male 01/01/2020 10:16 AM EDT Legal Sex Male 8:12 PM EST Gender Identity Male 01/01/2020 10:16 AM EDT Sexual Orientation Straight 01/24/2021 12 :01 PM EST documented as of this encounter Plan of Treatment Upcoming Encounters Date Type Department Care Team (Late st Contact Info) Description 11/08/2024 2:40 PM EDT Office Visit [facility] [place] [facility] [address] [place] [address] [address] [place], [place] [phone] Jacky Kulkarni MD [address] [place], [place] [address] [place] [address] [email or web address] documented as of this encounter Results * XR SHOULDER 2 VIEWS (RIGHT) (04/20/2018 9:02 AM EST) Anatomical Region Laterality Modality Shoulder Right Radiographic Ivy ging 04/20/2018 9:22 AM EST Impressions 04/20/2018 9:24 AM EST Mild glenohumeral and acromioclavicular degenerative change without acute bony abnormality. Probable exostosis versus, perhaps less likely, old healed fracture deformity of proximal humeral shaft which could be correlated with patient history and clinical findings. POS - [email or web address] Narrative 04/20/2018 9:24 AM EST COMPARISON: None FINDINGS: Frontal, oblique, and transscapular Y-views were obtained. No acute fracture or subluxation are noted. There is mild spurring along the upper margin of the glenoid. There is either an old healed fracture deformity or a prominent exostosis seen along the dorsal margin of the proximal humeral shaft. Minimal degenerative changes are present in the acromioclavicular compartment. No aberrant soft tissue calcifications of significance are noted. Visualized right upper lung field is clear. Procedure Note Cristy Escamilal MD - 04/20/2018 COMPARISON: None FINDINGS: Frontal, oblique, and transscapular Y-views were obtained. No acutefracture or subluxation are noted. There is mild spurring along the uppermargin of the glenoid. There is either an old healed fracture deformityor a prominent exostosis seen along the dorsal margin of the proximalhumeral shaft. Minimal degenerative changes are present in theacromioclavicular compartment. No aberrant soft tissue calcifications ofsignificance are noted. Visualized right upper lung field is clear. IMPRESSION: Mild glenohumeral and acromioclavicular degenerative change without acutebony abnormality. Probable exostosis versus, perhaps less likely, oldhealed fracture deformity of proximal humeral shaft which could becorrelated with patient history and clinical findings. POS - [id number] Jose Juan Neves MD IMG XR UPPER EXTREMITY Final Result documented in this encounter Visit Diagnoses Diagnosis Right shoulder pain, unspecified chronicity Right shoulder pain, unspecified chronicity documented in this encounter Additional Health Concerns Infection [...] documented as of this encounter Care Teams Senior Manufacturing Engineer Relationship Specialty Start Date End Date Alma Farias MD PCP - General Family Medicine 08/08/17 05/07/19 Jacky Kulkarni MD [address] [place] [address] PCP - General Internal Medicine 05/08/19 documented as of this encounter Additional Source Comments The information contained in this document represents components of the legal health record. It is not the complete legal health record.[facility]
== END 2024-10-24 09:44 | disposition home or self-care (01) ==
LOC: HO.HSMS 08:52
PROVIDERS: Visit Provider Psychiatry & Neurology Neurology
DX: G20.A1 Parkinson's disease without dyskinesia, without mention of fluctuations (principal)
CPT/HCPCS: 99214

== ENCOUNTER 2025-03-05 10:46 | Outpatient (REF) | payer MEDICARE, SELFPAY ==
--- OUTSIDE RECORDS SUMMARY | 2021-01-22 11:40 | XMS_ITS | Encounter Summary ---
Author Organization [facility] Address [address] [facility] [address] [place] [phone] Phone Care Team Providers Care Mobility Architect Manager Name Role Phone Jacky Kulkarni MD Primary Care Provider Encounter Details Date Type Department Care Team (Late st Contact Info) Description 01/22/2021 11:40 AM EST Hospital Encounter [facility] [address] [place] [phone] Kenyetta Betancur, WET MIXER [address] [place] [address] [email or web address] Social History Tobacco Use Types Packs/Day Years Used Date Smoking Tobacco: Former Cigarettes 1984 Smokeless Tobacco: Never Comments:in his 20s Alcohol Use Standard Drinks/Week Comments Not Currently 0 (1 standard drink = 0.6 oz pur e alcohol) occasional Education Answer Date Recorded Are you interested in more education? Not on aniceto e 07/01/2022 Are you concerned about learning? Not on file 07/01/2022 No 07/01/2022 No 07/01/2022 Digital Access Answer Date Recorded No 08/02/2022 No 08/02/2022 Reliable internet access at home? Not on file 08/02/2022 Device with a working camera? Not on file Intimate Partner Violence Answer Date R ecorded Denied Basic Needs Not on file 11/01/2024 In the past 12 months have y ou been in a relationship with a person who hurts, threatens, or tries to control you? No 11/01/2024 Worried food would run out Not on file 11/01 In the past 12 months have y ou been in a relationship with a person who hurts, threatens, or tries to control you? No 11/01/2024 Sex and Gender Information Value Date Recorded Sex Assigned at Male 01/01/2020 10:16 AM EDT Legal Sex Male 8:12 PM EST Gender Identity Male 01/01/2020 10:16 AM EDT Sexual Orientation Straight 01/24/2021 12 :01 PM EST documented as of this encounter Plan of Treatment Upcoming Encounters Date Type Department Care Team (Late st Contact Info) Description 03/06/2025 10:00 AM EST Office Visit [facility] [address] [address] Jacky Kulkarni MD [address] [place] [phone] [email or web address] 11/13/2025 11:20 AM EDT Office Visit [facility] 14 [facility] [address] [place] [address] Jacky Kulkarni MD [address] [place] [address] [email or web address] documented as of this encounter Procedures Procedure Name Priority Date/Time Associated Diagnosis Comments XR CHEST PA AND LATERAL 2 VIEWS STAT 01/22/2021 11:57 AM EST Flu-like symptoms documented in this encounter Results * XR CHEST PA AND LATERAL 2 VIEWS (01/22/2021 11:57 AM EST) Anatomical Region Laterality Modality Chest Computed Radiogr aphy 01/22/2021 12:0 5 PM EST Impressions 01/22/2021 12:12 PM EST No acute abnormality. ATTESTATION: I, Vandana Nolasco as teaching physician, have reviewed the images for this case and if necessary edited the report originally created by Rodrigo Bryant. Narrative 01/22/2021 12:12 PM EST XR CHEST PA AND LATERAL 2 VIEWS COMPARISON: Chest CT dated November 09, 2018. FINDINGS: Devices/Tubes/Lines: None. Lungs: Normal. The lungs are clear. No focal consolidation or pulmonary edema. Pleura: Normal. No pleural effusion or pneumothorax. Heart/Mediastinum: Status post CABG. Heart and mediastinal contours are normal. Bones/Soft Tissues: Partially imaged cervical fusion hardware. Median sternotomy wires are intact. Degenerative changes of thoracic spine. Procedure Note Vandana Nolasco MD - 01/22/2021 XR CHEST PA AND LATERAL 2 VIEWS COMPARISON: Chest CT dated November 09, 2018. FINDINGS: Devices/Tubes/Lines: None. Lungs: Normal. The lungs are clear. No focal consolidation or pulmonaryedema. Pleura: Normal. No pleural effusion or pneumothorax. Heart/Mediastinum: Status post CABG. Heart and mediastinal contours arenormal. Bones/Soft Tissues: Partially imaged cervical fusion hardware. Mediansternotomy wires are intact. Degenerative changes of thoracic spine. IMPRESSION: No acute abnormality. ATTESTATION: Vandana Qiu as teaching physician, have reviewed theimages for this case and if necessary edited the report originally createdby Rodrigo Bryant. Kenyetta Betancur WET MIXER IMG XR CHEST Final R esult documented in this encounter Visit Diagnoses Not on filedocumented in this encounter Additional Health Concerns Infection Onset Date Last Indicated Resolved Time CoV-Risk 01/22/2021 01/22/2021 01/23/2021 12:0 5 PM EST COVID-19 01/22/2021 01/22/2021 02/12/2021 1:22 AM EST CoV-Risk 05/11/2021 05/11/2021 05/22/2021 1:23 AM EDT CoV-Risk 10/29/2022 10/29/2022 11/09/2022 1:22 AM EDT CoV-Risk 11/11/2023 11/11/2023 11/22/2023 1:22 AM EDT CoV-Risk 02/19/2024 02/19/2024 02/19/2024 3:22 PM EST COVID-19 02/19/2024 02/19/2024 03/11/2024 1:23 AM EST documented as of this encounter Care Teams Mobility Architect Manager Relationship Specialty Start Date End Date Jacky Kulkarni MD [address] [place] [phone] [email or web address] PCP - General Internal Medicine 05/08/19 documented as of this encounter Additional Source Comments The information contained in this document represents components of the legal health record. It is not the complete legal health record.[facility]
--- OUTSIDE RECORDS SUMMARY | 2021-05-11 09:26 | XMS_ITS | Encounter Summary ---
Author Organization [facility] Address [address] [place] [address] [place] [phone] Phone Care Team Providers Care Medical Examiner Name Role Phone Jacky Kulkarni MD Primary Care Provider [phone] Encounter Details Date Type Department Care Team (Late st Contact Info) Description 05/11/2021 9:26 AM EST Hospital Encounter [facility] [address] [place] [phone] Leah Kenney FNP [address] [place] [phone] [email or web address] Social History Tobacco Use Types Packs/Day Years [...] with a working camera? Not on file 05 / Intimate Partner Violence Answer Date R ecorded [...] Description 03/06/2025 10:00 AM EST Office Visit [facility] Primary Care [facility] [address] [facility] [address] [place] [address] Jacky Kulkarni MD [address] [place] [address] [place] [phone] 11/13/2025 11:20 AM EDT Office Visit [facility] [address] [facility] [address] [place] [phone] Jacky Kulkarni MD [address] [place] [phone] [email or web address] documented as of this encounter Procedures Procedure Name Priority Date/Time Associated Diagnosis Comments XR CHEST PA AND LATERAL 2 VIEWS Urgent/patient waiting 05/11/2021 9:33 AM EST Shortness of breath documented in this encounter Results * XR CHEST PA AND LATERAL 2 VIEWS (05/11/2021 9:33 AM EST) Anatomical Region Laterality Modality Chest Computed Radiogr aphy 05/11/2021 10:0 5 AM EST Impressions 05/11/2021 10:13 AM EST Streaky bibasilar airspace opacities consistent with atelectasis. Narrative 05/11/2021 10:13 AM EST XR CHEST PA AND LATERAL 2 VIEWS COMPARISON: XR CHEST PA AND LATERAL 2 VIEWS FINDINGS: Lines/tubes: None. Lungs: The lungs are well inflated. Streaky bibasilar airspace opacities are noted. There is no evidence of pneumonia or pulmonary edema. Pleura: There is no pleural effusion or pneumothorax. Heart and mediastinum: The heart and the mediastinum are unchanged. The patient is status post midline sternotomy and CABG. Bones: The thoracic skeleton is unchanged. ACDF plate and screws. Procedure Note Mary Barnes MD - 05/11/2021 XR CHEST PA AND LATERAL 2 VIEWS COMPARISON: XR CHEST PA AND LATERAL 2 VIEWS FINDINGS: Lines/tubes: None. Lungs: The lungs are well inflated. Streaky bibasilar airspace opacitiesare noted. There is no evidence of pneumonia or pulmonary edema. Pleura: There is no pleural effusion or pneumothorax. Heart and mediastinum: The heart and the mediastinum are unchanged. Thepatient is status post midline sternotomy and CABG. Bones: The thoracic skeleton is unchanged. ACDF plate and screws. IMPRESSION: Streaky bibasilar airspace opacities consistent with atelectasis. Leah Kenney HOG RAISER IMG XR CHEST Final Resul t documented in this encounter Visit Diagnoses Not on filedocumented in this encounter Additional Health Concerns Infection Onset Date Last Indicated Resolved Time CoV-Risk 05/11/2021 05/11/2021 05/22/2021 1:23 AM EDT CoV-Risk 10/29/2022 10/29/2022 11/09/2022 1:22 AM EDT CoV-Risk 11/11/2023 11/11/2023 11/22/2023 1:22 AM EDT CoV-Risk 02/19/2024 02/19/2024 02/19/2024 3:22 PM EST COVID-19 02/19/2024 02/19/2024 03/11/2024 1:23 AM EST documented as of this encounter Care Teams Medical Examiner Relationship Specialty Start Date End Date Jacky Kulkarni MD [address] [place] [address] [address] [place] [phone] [email or web address] PCP - General Internal Medicine 05/08/19 documented as of this encounter Additional Source Comments The information contained in this document represents components of the legal health record. It is not the complete legal health record.[facility]
[2025-03-05 13:06] LABS: Blood Urea Nitrogen 12 mg/dL (9-16); Estimated Glomerular Filt Rate > 60
--- OUTSIDE RECORDS SUMMARY | 2025-03-05 14:33 | XMS_ITS | Encounter Summary ---
Author Organization [facility] Address [address] [facility] [address] [place] [address] Phone Care Team Providers Care Mobile Patrol Officer Name Role Phone Jacky Kulkarni MD Primary Care Provider [phone] Encounter Details Date Type Department Care Team (Late st Contact Info) Description 05/18/2019 Ancillary Orders [facility], X-Ray - [address] [address] Mark Braun PA [address] [place] [address] [email or web address] Arthrodesis status Social History Tobacco Use Types Packs/Day Years [...] Description 03/06/2025 10:00 AM EST Office Visit [facility] 14 [facility] [address] [place] [address] Jacky Kulkarni MD 14 [facility] [address] [place] [address] 11/13/2025 11:20 AM EDT Office Visit [facility] 14 [facility] [address] [place] [address] Jacky Kulkarni MD [address] [facility] [address] [facility] [address] [place] [address] [email or web address] documented as of this encounter Results * XR CERVICAL SPINE 2-3 VIEWS (05/18/2019 9:13 AM EDT) Anatomical Region Laterality Modality C-spine Radiographic Ivy ging 05/18/2019 9:37 AM EDT Impressions 05/18/2019 9:43 AM EDT Approximately 4 mm of spondylolisthesis of C3 on C4 in the neutral position during flexion likely due to ligamentous laxity. This is minimally less during extension. No other subluxations. Status post fusion from C5 to C7. Stable degenerative disc and endplate changes, most prominent at C4-C5. POS - [id number] Narrative 05/18/2019 9:43 AM EDT HISTORY: Cervical pain, status-post fusion. COMPARISON: Cervical spine x-ray 04/18/2018 VIEWS: Flexion and extension cervical spine x-ray. FINDINGS: Lateral views obtained in the neutral position and during flexion and extension. There is mild reversal of the cervical lordosis. Approximately 4 mm of spondylolisthesis of C3 on C4 in the neutral position and during flexion. Limited range of motion during flexion. Approximately 3 mm of spondylolisthesis during extension. Limited range of motion during extension. No other subluxations. Fusion changes from C5 to C7 are stable. Hardware unchanged in position and appears intact. No suspicious lucencies or areas of sclerosis within the bones. Moderate disc space narrowing and sclerotic degenerative endplate changes at C4- C5 are stable. Mild disc space narrowing and degenerative endplate changes, including bridging anterior osteophytes at C3-C4 are stable. Small bridging anterior osteophytes at C2-C3 are stable. Prevertebral soft tissues are normal. Procedure Note Kishan Abraham MD - 05/18/2019 HISTORY: Cervical pain, status-post fusion. COMPARISON: Cervical spine x-ray 04/18/2018 VIEWS: Flexion and extension cervical spine x-ray. FINDINGS: Lateral views obtained in the neutral position and during flexion andextension. There is mild reversal of the cervical lordosis. Approximately 4 mm ofspondylolisthesis of C3 on C4 in the neutral position and during flexion.Limited range of motion during flexion. Approximately 3 mm ofspondylolisthesis during extension. Limited range of motion duringextension. No other subluxations. Fusion changes from C5 to C7 are stable. Hardware unchanged in positionand appears intact. No suspicious lucencies or areas of sclerosis withinthe bones. Moderate disc space narrowing and sclerotic degenerative endplate changesat C4- C5 are stable. Mild disc space narrowing and degenerative endplatechanges, including bridging anterior osteophytes at C3-C4 are stable.Small bridging anterior osteophytes at C2-C3 are stable. Prevertebral soft tissues are normal. IMPRESSION: Approximately 4 mm of spondylolisthesis of C3 on C4 in the neutralposition during flexion likely due to ligamentous laxity. This isminimally less during extension. No other subluxations. Status post fusionfrom C5 to C7. Stable degenerative disc and endplate changes, mostprominent at C4-C5. POS - [email or web address] Mark FLORES IMG XR SPINE Final Resul t documented in this encounter Visit Diagnoses Diagnosis Arthrodesis status Arthrodesis status documented in this encounter Additional Health Concerns [...] documented as of this encounter Care Teams Mobile Patrol Officer Relationship Specialty Start Date End Date Jacky Kulkarni MD [address] [place] [address] [email or web address] PCP - General Internal Medicine 05/08/19 documented as of this encounter Additional Source Comments The information contained in this document represents components of the legal health record. It is not the complete legal health record.[facility]
--- OUTSIDE RECORDS SUMMARY | 2025-03-05 14:33 | XMS_ITS | Encounter Summary ---
Author Organization [facility] Address [address] [place] [address] Phone Care Team Providers Care Concaver Name Role Phone Jacky Kulkarni MD Primary Care Provider [phone] Reason for Referral * MRI/CAT Scan - Closed Specialty Diagnoses / Procedures Referred By Edmund amaya Referred To Contact Radiology Diagnoses Ataxia Memory loss Procedures MRI Brain CHG MRI BRAIN COMBO CHG MRI BRAIN CHG MRI BRAIN CONTRAST Piter Lew MD Phone: tel: fax: [email or web address] Referral ID Status Reason Start Date Expiration Date Visits Re quested Visits Authorized [id number] Closed 01/15/2022 03/15/2022 1 1 Encounter Details Date Type Department Care Team (Latest Contact Info) Description 01/15/2022 Transcribe Orders Virtual Department [address] [place] [address] Piter Lew MD [address] [place] [address], [address] [place], [place] [phone] [email or web address] Ataxia (Primary Dx); Memory loss Social History Tobacco Use Types Packs/Day Years Used Date Smoking Tobacco: Former Cigarettes Q uit: 1985 Smokeless Tobacco: Never Comments:in his 20s Alcohol Use Standard Drinks/Week Comments Yes 0 (1 standard drink = 0.6 oz pur e alcohol) occasional Sex and Gender Information Value Date Recorded Sex Assigned at Male 01/01/2020 10:16 AM EDT Legal Sex Male 8:12 PM EST Gender Identity Male 01/01/2020 10:16 AM EDT Sexual Orientation Straight 01/24/2021 12 :01 PM EST documented as of this encounter Plan of Treatment Upcoming Encounters Date Type Department Care Team (Late st Contact Info) Description 03/06/2025 10:00 AM EST Office Visit [facility] 14 [facility] [address] [place] [address] Jacky Kulkarni MD [address] [place] [address] [place] [address] [email or web address] 11/13/2025 11:20 AM EDT Office Visit [facility] 14 [facility] [address] [place] [address] Jacky Kulkarni MD [address] [place] [address] [place] [address] [email or web address] documented as of this encounter Results * MRI BRAIN WITHOUT CONTRAST (02/11/2022 12:49 PM EST) Anatomical Region Laterality Modality Head Magnetic Resonan ce 02/11/2022 12:5 1 PM EST Impressions 02/11/2022 9:12 PM EST No intracranial cause for the reported symptoms identified. No evidence of normal pressure hydrocephalus. No evidence of a regional brain parenchymal volume loss pattern. Narrative 02/11/2022 9:12 PM EST MRI BRAIN WITHOUT CONTRAST TECHNIQUE: MRI BRAIN WITHOUT CONTRAST Multi-sequence, multi-planar MRI of the brain was performed without intravenous contrast. COMPARISON: None FINDINGS: Brain Parenchyma: There is mild to moderate scattered T2/FLAIR hyperintensity in the periventricular and deep white matter which is nonspecific and can be seen in the setting of chronic small vessel disease. No evidence of acute infarct, mass lesion, or recent hemorrhage. Few punctate old supratentorial microhemorrhages, likely clinically insignificant. Ventricular System and Extra-Axial Spaces: Normal. No evidence of midline shift or hydrocephalus. Extracranial Structures: Arterial flow voids in the skull base are present. Procedure Note Lupillo Dutta MD - 02/11/2022 MRI BRAIN WITHOUT CONTRAST TECHNIQUE: MRI BRAIN WITHOUT CONTRAST Multi-sequence, multi-planar MRI of the brain was performed withoutintravenous contrast. COMPARISON: None FINDINGS: Brain Parenchyma: There is mild to moderate scattered T2/FLAIRhyperintensity in the periventricular and deep white matter which isnonspecific and can be seen in the setting of chronic small vesseldisease. No evidence of acute infarct, mass lesion, or recent hemorrhage.Few punctate old supratentorial microhemorrhages, likely clinicallyinsignificant. Ventricular System and Extra-Axial Spaces: Normal. No evidence of midlineshift or hydrocephalus. Extracranial Structures: Arterial flow voids in the skull base arepresent. IMPRESSION: No intracranial cause for the reported symptoms identified. No evidence ofnormal pressure hydrocephalus. No evidence of a regional brain parenchymalvolume loss pattern. Piter Lew MD IM MR HEAD/NECK Final Resul t documented in this encounter Visit Diagnoses Diagnosis Ataxia- Primary Lack of coordination Memory loss Ataxia Lack of coordination Memory loss documented in this encounter Additional Health Concerns Infection Onset Date Last Indicated Resolved Time CoV-Risk 10/29/2022 10/29/2022 11/09/2022 1:22 AM EDT CoV-Risk 11/11/2023 11/11/2023 11/22/2023 1:22 AM EDT CoV-Risk 02/19/2024 02/19/2024 02/19/2024 3:22 PM EST COVID-19 02/19/2024 02/19/2024 03/11/2024 1:23 AM EST documented as of this encounter Care Teams Concaver Relationship Specialty Start Date End Date Jacky Kulkarni MD [address] [facility] [address] [place] [address] [email or web address] PCP - General Internal Medicine 05/08/19 documented as of this encounter Additional Source Comments The information contained in this document represents components of the legal health record. It is not the complete legal health record.[facility]
--- OUTSIDE RECORDS SUMMARY | 2025-03-05 14:33 | XMS_ITS | Encounter Summary ---
Author Organization [facility] Address [address] [place] [address] [place] [address] Phone Care Team Providers Care Block Captain Name Role Phone Jacky Kulkarni MD Primary Care Provider Encounter Details Date Type Department Care Team (Late st Contact Info) Description 12/26/2019 Procedure Pass [email or web address] [address] [place] [address] Social History Tobacco Use Types Packs/Day Years [...] 03/06/2025 10:00 AM EST Office Visit [facility] 14 [facility] [address] [place] [address] Jacky Kulkarni MD 14 [facility] [address] [place], [place] [phone] 11/13/2025 11:20 AM EDT Office Visit [facility] 14 [facility] [address] [place] [address] Jacky Kulkarni MD 14 [facility] [address] [place] [address] [email or web address] documented as of this encounter Visit Diagnoses [...] documented as of this encounter Care Teams Block Captain Relationship Specialty Start Date End Date Jacky Kulkarni MD 14 [facility] [address] [place] [address] [email or web address] PCP - General Internal Medicine 05/08/19 documented as of this encounter Additional Source Comments The information contained in this document represents components of the legal health record. It is not the complete legal health record.[facility]
--- OUTSIDE RECORDS SUMMARY | 2025-03-05 14:33 | XMS_ITS | Clinical Summary ---
Author Organization [facility] Address [address] [place] [address] 7 [place] [address] Care Team Providers Care Heel Reducer Name Role Phone Unavailable Primary Care Provider [...] 12/24/2021 10/29/2021, 03/08 COVID-19 Vaccine (3 - 2024- season) 2024 06/05/2020, 05/08/2020 Influenza Vaccine (#1) 2024 , 11/30/2019, 12/16/2017, Additional history exists Pneumococcal [...] patient's age to complete this topic Meningococcal B Vaccine Aged Out No l onger eligible based on patient's age to complete [...]
--- OUTSIDE RECORDS SUMMARY | 2025-03-05 14:33 | XMS_ITS | Encounter Summary ---
Author Organization [facility] Address [address] [place] [address] [place] [address] Phone Care Team Providers Care Mailroom Assistant Name Role Phone Alma Farias MD Primary Care Provider [phone]- [phone] Jacky Kulkarni MD Primary Care Provider Encounter Details Date Type Department Care Team (Late st Contact Info) Description 04/26/2018 Procedure Pass [facility], [address] [address] Social History Tobacco Use Types Packs/Day Years [...] Office Visit [facility] 14 [facility] [address] [place], [place] [phone] Jacky Kulkarni MD 14 [facility] [address] [place], [place] [phone] [email or web address] 11/13/2025 11:20 AM EDT Office Visit [facility] 14 [facility] [address] [place] [address] Jacky Kulkarni MD 14 [facility] [address] [place] [address] [email or web address] documented as of this encounter Visit Diagnoses [...] documented as of this encounter Care Teams Mailroom Assistant Relationship Specialty Start Date End Date Alma Farias MD [email or web address] PCP - General Family Medicine 08/08/17 05/07/19 Jacky Kulkarni MD 14 [facility] [address] [place] [address] [email or web address] PCP - General Internal Medicine 05/08/19 documented as of this encounter Additional Source Comments The information contained in this document represents components of the legal health record. It is not the complete legal health record.[facility]
--- OUTSIDE RECORDS SUMMARY | 2025-03-05 14:33 | XMS_ITS | Encounter Summary ---
Author Organization [facility] Address [address] [place] [address] Phone Care Team Providers Care Paper Wood Cutter Name Role Phone Alma Farias MD Primary Care Provider [phone]- [phone] Jacky Kulkarni MD Primary Care Provider [phone]- [phone] Encounter Details Date Type Department Care Team (Late st Contact Info) Description 04/18/2018 Ancillary Orders Virtual Department 30 [place], [place] [phone] Jose Juan Neves MD [address] [place] [phone] [email or web address] Right shoulder pain, unspecified chronicity Social History [...] Description 03/06/2025 10:00 AM EST Office Visit [facility] 14 [facility] [address] [place] [address] Jacky Kulkarni MD 14 [facility] [address] [place] [address] [email or web address] 11/13/2025 11:20 AM EDT Office Visit [facility] 14 [facility] [address] [place] [address] Jacky Kulkarni MD 14 [facility] [address] [place] [address] [email or web address] documented as of this encounter Results * [...] lung field is clear. Procedure Note Cristy Escamilla MD - 04/20/2018 COMPARISON: None FINDINGS: Frontal, [...] history and clinical findings. POS - [id number] us Jose Juan Neves MD IMG XR UPPER [...] documented as of this encounter Care Teams Paper Wood Cutter Relationship Specialty Start Date End Date Alma Farias MD [email or web address] PCP - General Family Medicine 08/08/17 05/07/19 Jacky Kulkarni MD [address] [place] [address] [email or web address] PCP - General Internal Medicine 05/08/19 documented as of this encounter Additional Source Comments The information contained in this document represents components of the legal health record. It is not the complete legal health record.[facility]
--- OUTSIDE RECORDS SUMMARY | 2025-03-05 14:33 | XMS_ITS | Encounter Summary ---
Author Organization [facility] Address [address] [place] [address] [place] [address] Care Team Providers Care Senior Technical Specialist Name Role Phone Unavailable Primary Care Provider [...]
--- OUTSIDE RECORDS SUMMARY | 2025-03-05 14:33 | XMS_ITS | Encounter Summary ---
Author Organization [facility] Address [address] [facility] [address] [place] [address] Phone Care Team Providers Care Manager Resort Name Role Phone Jacky Kulkarni MD Primary Care Provider [phone] Encounter Details Date Type Department Care Team (Late st Contact Info) Description 04/15/2022 Procedure Pass [facility], [address] [place] [address] Social History Tobacco Use Types Packs/Day Years [...] 03/06/2025 10:00 AM EST Office Visit [facility] 14 [facility] [address] [place], [place] [phone] Jacky Kulkarni MD 14 [facility] [address] [place], [place] [phone] 11/13/2025 11:20 AM EDT Office Visit [facility] 14 [facility] [address] [place] [address] Jacky Kulkarni MD 14 [facility] [address] [place] [address] [email or web address] documented as of this encounter Visit Diagnoses Not on filedocumented in this encounter Additional Health Concerns Infection Onset Date Last Indicated Resolved Time CoV-Risk 10/29/2022 10/29/2022 11/09/2022 1:22 AM EDT CoV-Risk 11/11/2023 11/11/2023 11/22/2023 1:22 AM EDT CoV-Risk 02/19/2024 02/19/2024 02/19/2024 3:22 PM EST COVID-19 02/19/2024 02/19/2024 03/11/2024 1:23 AM EST documented as of this encounter Care Teams Manager Resort Relationship Specialty Start Date End Date Jacky Kulkarni MD 14 [facility] [address] [place] [address] [email or web address] PCP - General Internal Medicine 05/08/19 documented as of this encounter Additional Source Comments The information contained in this document represents components of the legal health record. It is not the complete legal health record.[facility]
--- OUTSIDE RECORDS SUMMARY | 2025-03-05 14:33 | XMS_ITS | Encounter Summary ---
Author Organization [facility] Address [address] [place] [address] Phone Care Team Providers Care Assembly Line Upholsterer Name Role Phone Alma Farias MD Primary Care Provider [phone]- [phone] Jacky Kulkarni MD Primary Care Provider [phone]- [phone] Encounter Details Date Type Department Care Team (Latest Contact Info) Description 04/26/2018 Ancillary Orders Virtual Department [address] [place], [place] [phone] Jose Juan Neves MD [address] [place] [phone] [email or web address] Radiculopathy of cervical spine Social History Tobacco Use Types Packs/Day Years [...] Upcoming Encounters Date Type Department Care Team ( st Contact Info) Description 03/06/2025 10:00 AM EST Office Visit [facility] 14 [facility] [address] [place] [address] Jacky Kulkarni MD 14 [facility] [address] [place] [address] [email or web address] 11/13/2025 11:20 AM EDT Office Visit [facility] 14 [facility] [address] [place] [address] Jacky Kulkarni MD 14 [facility] [address] [place] [address] [email or web address] documented as of this encounter Visit Diagnoses Diagnosis Radiculopathy of cervical spine Brachial neuritis or radiculitis nos documented in this encounter Additional Health Concerns [...] documented as of this encounter Care Teams Assembly Line Upholsterer Relationship Specialty Start Date End Date Alma Farias MD [email or web address] PCP - General Family Medicine 08/08/17 05/07/19 Jacky Kulkarni MD 14 [facility] [address] [place] [address] [email or web address] PCP - General Internal Medicine 05/08/19 documented as of this encounter Additional Source Comments The information contained in this document represents components of the legal health record. It is not the complete legal health record.[facility]
--- OUTSIDE RECORDS SUMMARY | 2025-03-05 14:33 | XMS_ITS | Encounter Summary ---
Author Organization [facility] Address [address] [place] [address] [place] [address] Phone Care Team Providers Care Tire Changer Aircraft Name Role Phone Alma Farias MD Primary Care Provider [phone]- [phone] Jacky Kulkarni MD Primary Care Provider [phone] Reason for Referral * MRI/CAT Scan - Closed Specialty Diagnoses / Procedures Referred By Edmund t Referred To Contact Radiology Diagnoses Radiculopathy of cervical spine Fusion of spine, cervical region Procedures MRI Cervical Spine MRI Cervical Spine Jose Juan Neves MD Phone: tel: fax: [email or web address] Referral ID Status Reason Start Date Expiration Date Visits Re quested Visits Authorized [id number] Closed 04/26/2018 04/26/2019 1 1 Encounter Details Date Type Department Care Team (Latest Contact Info) Description 04/26/2018 Ancillary Orders Virtual Department [address] [place] [address] Jose Juan Neves MD [address] [place] [phone] [email or web address] Radiculopathy of cervical spine; Fusion of spine, cervical region Social History Tobacco Use Types Packs/Day Years [...] Description 03/06/2025 10:00 AM EST Office Visit [facility] 14 [facility] [address] [place] [address] Jacky Kulkarni MD [address] [place] [address] [place] [address] [email or web address] 11/13/2025 11:20 AM EDT Office Visit [facility] 14 [facility] [address] [place] [address] Jacky Kulkarni MD 14 [facility] [address] [place] [address] [email or web address] documented as of this encounter Results * MRI CERVICAL SPINE (BONE) WITHOUT CONTRAST (05/10/2018 9:54 AM EST) Anatomical Region Laterality Modality C-spine Magnetic Resonan ce 05/10/2018 9:56 AM EST Impressions 05/10/2018 10:30 AM EST Moderate C4-5 degenerative disc disease with a moderate size disc extrusion, mild canal stenosis and multilevel neural foraminal stenosis due to degenerative changes outlined above. POS - [id number] Narrative 05/10/2018 10:30 AM EST COMPARISON: Radiographs 04/18/2018. TECHNIQUE: Exam performed on a 1.5 Mariel high-field MRI scanner. Sagittal T1, T2 and STIR, axial T2* gradient echo and 3-D bright fluid sequences were obtained. MRI CERVICAL SPINE FINDINGS: Stable lower cervical reversal of lordosis and 3 mm retrolisthesis of C4. Anterior fusion hardware artifact from C5 to C7 and fusion of the disc spaces. Stable moderate C4-5 disc space narrowing. Moderate endplate marrow edema at C4-5 to the right of midline and mild increased T2 signal in the disc which is likely degenerative. Endplates appear intact. No definite findings of discitis. No bone marrow lesions. No cerebellar tonsil herniation or spinal cord lesions. Paraspinal soft tissues are normal. C2-3: Mild right facet arthropathy and uncovertebral spurring causing mild neural foraminal stenosis C3-4: Mild left facet arthropathy and moderate right uncovertebral osteophytes. Mild left and moderate right neural foraminal stenosis. C4-5: C4 retrolisthesis, moderate size right paracentral disc extrusion indenting the cord. Mild bilateral facet arthropathy. Mild left neural foraminal stenosis and moderate right neural foraminal stenosis due to uncovertebral spurring, facet disease and disc herniation. Mild canal stenosis due to the disc herniation and posterior ligamentous hypertrophy. C5-6: Mild bilateral facet arthropathy. C6-7: Normal. C7-T1: Mild left facet arthropathy. T1-T2: Disc bulging. Procedure Note David Thacker MD - 05/10/2018 COMPARISON: Radiographs 04/18/2018. TECHNIQUE: Exam performed on a 1.5 Mariel high-field MRI scanner. SagittalT1, T2 and STIR, axial T2* gradient echo and 3-D bright fluid sequenceswere obtained. MRI CERVICAL SPINE FINDINGS: Stable lower cervical reversal of lordosis and 3 mm retrolisthesis of C4.Anterior fusion hardware artifact from C5 to C7 and fusion of the discspaces. Stable moderate C4-5 disc space narrowing. Moderate endplatemarrow edema at C4-5 to the right of midline and mild increased T2 signalin the disc which is likely degenerative. Endplates appear intact. Nodefinite findings of discitis. No bone marrow lesions. No cerebellartonsil herniation or spinal cord lesions. Paraspinal soft tissues arenormal. C2-3: Mild right facet arthropathy and uncovertebral spurring causingmild neural foraminal stenosis C3-4: Mild left facet arthropathy and moderate right uncovertebralosteophytes. Mild left and moderate right neural foraminal stenosis. C4-5: C4 retrolisthesis, moderate size right paracentral disc extrusionindenting the cord. Mild bilateral facet arthropathy. Mild left neuralforaminal stenosis and moderate right neural foraminal stenosis due touncovertebral spurring, facet disease and disc herniation. Mild canalstenosis due to the disc herniation and posterior ligamentoushypertrophy. C5-6: Mild bilateral facet arthropathy. C6-7: Normal. C7-T1: Mild left facet arthropathy. T1-T2: Disc bulging. IMPRESSION: Moderate C4-5 degenerative disc disease with a moderate size discextrusion, mild canal stenosis and multilevel neural foraminal stenosisdue to degenerative changes outlined above. POS - [id number] Jose Juan Neves MD IMG MR XSPECIALTY Final Result documented in this encounter Visit Diagnoses Diagnosis Radiculopathy of cervical spine Brachial neuritis or radiculitis nos Fusion of spine, cervical region Radiculopathy of cervical spine Brachial neuritis or radiculitis nos Fusion of spine, cervical region documented in this encounter Additional Health Concerns [...] documented as of this encounter Care Teams Tire Changer Aircraft Relationship Specialty Start Date End Date Alma Farias MD [phone] (Work) [email or web address] PCP - General Family Medicine 08/08/17 05/07/19 Jacky Kulkarni MD [address] [place] [address] [email or web address] PCP - General Internal Medicine 05/08/19 documented as of this encounter Additional Source Comments The information contained in this document represents components of the legal health record. It is not the complete legal health record.[facility]
--- OUTSIDE RECORDS SUMMARY | 2025-03-05 14:33 | XMS_ITS | Encounter Summary ---
Author Organization [facility] Address [address] [place] [address] Phone Care Team Providers Care Diver Helper Name Role Phone Jacky Kulkarni MD Primary Care Provider [phone] Encounter Details Date Type Department Care Team (Late st Contact Info) Description 01/15/2022 Procedure Pass [facility], [address] [address] Social History Tobacco Use Types Packs/Day Years [...] Description 03/06/2025 10:00 AM EST Office Visit [facility] 14 [facility] [address] [place], [place] [phone] Jacky Kulkarni MD 14 [facility] [address] [place], [place] [phone] [email or web address] 11/13/2025 11:20 AM EDT Office Visit [facility] 14 [facility] [address] [place] [address] Jacky Kulkarni MD 14 [facility] [address] [place] [address] [email or web address] documented as of this encounter Visit Diagnoses Not on filedocumented in this encounter Additional Health Concerns Infection Onset Date Last Indicated Resolved Time CoV-Risk 10/29/2022 10/29/2022 11/09/2022 1:22 AM EDT CoV-Risk 11/11/2023 11/11/2023 11/22/2023 1:22 AM EDT CoV-Risk 02/19/2024 02/19/2024 02/19/2024 3:22 PM EST COVID-19 02/19/2024 02/19/2024 03/11/2024 1:23 AM EST documented as of this encounter Care Teams Diver Helper Relationship Specialty Start Date End Date Jacky Kulkarni MD 14 [facility] [address] [place] [address] [email or web address] PCP - General Internal Medicine 05/08/19 documented as of this encounter Additional Source Comments The information contained in this document represents components of the legal health record. It is not the complete legal health record.[facility]
--- OUTSIDE RECORDS SUMMARY | 2025-03-05 14:33 | XMS_ITS | Encounter Summary ---
Author Organization [facility] Address [address] [place] [address] [place] [address] Care Team Providers Care Lace Pinner Name Role Phone Unavailable Primary Care Provider [...]
--- OUTSIDE RECORDS SUMMARY | 2025-03-05 14:33 | XMS_ITS | Encounter Summary ---
Author Organization [facility] Address [address] [place] [address] [place] [address] Phone Care Team Providers Care Application Counselor Name Role Phone Alma Farias MD Primary Care Provider [phone] Jacky Kulkarni MD Primary Care Provider [phone] Reason for Referral * MRI/CAT Scan - Closed Specialty Diagnoses / Procedures Referred By Edmund amaya Referred To Contact Radiology Diagnoses Abnormal chest x-ray Procedures CT Chest Maddie Kramer NP Phone: tel: fax: [email or web address] Referral ID Status Reason Start Date Expiration Date Visits Re quested Visits Authorized [id number] Closed 10/30/2018 10/30/2019 1 1 Encounter Details Date Type Department Care Team (Latest Contact Info) Description 10/30/2018 Transcribe Orders Virtual Department 30 [place] [address] Maddie Kramer NP [address] [place] [address] [email or web address] Abnormal chest x-ray (Primary Dx) Social History Tobacco Use Types Packs/Day Years [...] Description 03/06/2025 10:00 AM EST Office Visit [facility] Care [facility] 14 [facility] [address] [place] [address] Jakcy Kulkarni MD [address] [place] [address] [place] [address] [email or web address] 11/13/2025 11:20 AM EDT Office Visit [facility] 14 [facility] [address] [place] [address] Jacky Kulkarni MD [address] [place] [address] [place] [address] [email or web address] documented as of this encounter Results * CT CHEST WITH CONTRAST (11/09/2018 8:32 AM EDT) Anatomical Region Laterality Modality Chest Computed Tomogra phy 11/09/2018 10:0 9 AM EDT Impressions 11/09/2018 10:20 AM EDT No acute chest pathology. Calcified pleural plaques and adjacent nodular pleural thickening. TOTAL CTDIvol: 9.2 mGy POS [facility]-RW Narrative 11/09/2018 10:20 AM EDT HISTORY: Abnormal chest x-ray. Multiple pulmonary nodules. TECHNIQUE: CT images of the chest obtained following administration of IV contrast. COMPARISON: None. FINDINGS: The patient is status post median sternotomy. The heart is normal sized. The ascending aorta is borderline ectatic. The pulmonary arteries are unremarkable. There is no mediastinal or hilar adenopathy. There is no axillary adenopathy. There is no focal lung consolidation or infiltrate. There are no suspicious pulmonary nodules. There are calcified pleural plaques on the right. There are adjacent nodular foci of pleural thickening. There is mild pleural thickening posteriorly on the left. Included portions of the upper abdomen are unremarkable. There are no suspicious bone lesions. Procedure Note Dre Ortega MD - 11/09/2018 HISTORY: Abnormal chest x-ray. Multiple pulmonary nodules. TECHNIQUE: CT images of the chest obtained following administration of IVcontrast. COMPARISON: None. FINDINGS: The patient is status post median sternotomy. The heart is normal sized. The ascending aorta is borderline ectatic. Thepulmonary arteries are unremarkable. There is no mediastinal or hilar adenopathy. There is no axillaryadenopathy. There is no focal lung consolidation or infiltrate. There are nosuspicious pulmonary nodules. There are calcified pleural plaques on theright. There are adjacent nodular foci of pleural thickening. There ismild pleural thickening posteriorly on the left. Included portions of the upper abdomen are unremarkable. There are no suspicious bone lesions. IMPRESSION: No acute chest pathology. Calcified pleural plaques and adjacent nodularpleural thickening. TOTAL CTDIvol: 9.2 mGy POS [facility]H-RW Maddie Kramer PODIATRIC MEDICINE PROFESSOR IMG CT CHEST Final Resu lt documented in this encounter Visit Diagnoses Diagnosis Abnormal chest x-ray- Primary Nonspecific (abnormal) findings on radiological and other examination of lung field Abnormal chest x-ray Nonspecific (abnormal) findings on radiological and other examination of lung field documented in this encounter Additional Health Concerns Infection Onset Date Last Indicated Resolved Time CoV-Risk 01/22/2021 01/22/2021 01/23/2021 12:0 5 PM EST COVID-19 01/22/2021 01/22/2021 02/12/2021 1:22 AM EST CoV-Risk 05/11/2021 05/11/2021 05/22/2021 1:23 AM EDT CoV-Risk 10/29/2022 10/29/2022 11/09/2022 1:22 AM EDT CoV-Risk 11/11/2023 11/11/2023 11/22/2023 1:22 AM EDT CoV-Risk 02/19/2024 02/19/2024 02/19/2024 3:2 2 PM EST COVID-19 02/19/2024 02/19/2024 03/11/2024 1:23 AM EST documented as of this encounter Care Teams Application Counselor Relationship Specialty Start Date End Date Alma Farias MD [email or web address] PCP - General Family Medicine 08/08/17 05/07/19 Jacky Kulkarni MD [address] [place] [address] [email or web address] PCP - General Internal Medicine 05/08/19 documented as of this encounter Additional Source Comments The information contained in this document represents components of the legal health record. It is not the complete legal health record.[facility]
--- OUTSIDE RECORDS SUMMARY | 2025-03-05 14:33 | XMS_ITS | Encounter Summary ---
Author Organization [facility] Address [address] [place] [address] [place] [address] Care Team Providers Care Claims Adjuster Supervisor Name Role Phone Unavailable Primary Care Provider [...]
--- OUTSIDE RECORDS SUMMARY | 2025-03-05 14:34 | XMS_ITS | Encounter Summary ---
Author Organization [facility] Address [address] [place] [address] [place] [address] Phone Care Team Providers Care Adult Basic Education Manager Name Role Phone Jacky Kulkarni MD Primary Care Provider [phone] Encounter Details Date Type Department Care Team (Late st Contact Info) Description 06/01/2021 Procedure Pass [facility], [address] [place] [address] Social History Tobacco Use Types Packs/Day Years [...] PM EST documented as of this encounter Last Filed Vital Signs Vital Sign Reading Time Taken Comments Blood Pressure - - Pulse - - Temperature - - Respiratory Rate - - Oxygen Saturation - - Inhaled Oxygen Concentration - - Weight 104.3 kg (230 lb) 06/01/2021 4:03 PM EDT Height 182.9 cm (6') 06/01/2021 4:03 PM EDT Body Mass Index 31.19 06/01/2021 4:03 PM EDT documented in this encounter Plan of Treatment Upcoming Encounters Date Type Department Care Team (Late st Contact Info) Description 03/06/2025 10:00 AM EST Office Visit [facility] 14 [facility] [address] [place] [address] Jacky Kulkarni MD 14 [facility] [address] [place] [address] [email or web address] 11/13/2025 11:20 AM EDT Office Visit [facility] 14 [facility] [address] [place] [address] Jacky Kulkarni MD 14 [facility] [address] [place] [address] [email or web address] documented as of this encounter Visit Diagnoses Not on filedocumented in this encounter Additional Health Concerns Infection Onset Date Last Indicated Resolved Time CoV-Risk 10/29/2022 10/29/2022 11/09/2022 1:22 AM EDT CoV-Risk 11/11/2023 11/11/2023 11/22/2023 1:22 AM EDT CoV-Risk 02/19/2024 02/19/2024 02/19/2024 3:22 PM EST COVID-19 02/19/2024 02/19/2024 03/11/2024 1:23 AM EST documented as of this encounter Care Teams Adult Basic Education Manager Relationship Specialty Start Date End Date Jacky Kulkarni MD [address] [address] PCP - General Internal Medicine 05/08/19 documented as of this encounter Additional Source Comments The information contained in this document represents components of the legal health record. It is not the complete legal health record.[facility]
--- OUTSIDE RECORDS SUMMARY | 2025-03-05 14:34 | XMS_ITS | Encounter Summary ---
Author Organization [facility] Address [address] [place] [address] Phone Care Team Providers Care Bulk Pallet Builder Name Role Phone Alma Farias MD Primary Care Provider [phone]- [phone] Jacky Kulkarni MD Primary Care Provider [phone] Encounter Details Date Type Department Care Team (Late st Contact Info) Description 04/18/2018 Ancillary Orders [facility], X-Ray - [address] [address] Jose Juan Neves MD [address] [place] [address] [email or web address] Cervicalgia Social History Tobacco Use Types Packs/Day Years [...] Description 03/06/2025 10:00 AM EST Office Visit [facility] [address] [address] Jacky Kulkarni MD [address] [address] [email or web address] 11/13/2025 11:20 AM EDT Office Visit [facility] [address] [address] Jacky Kulkarni MD [address] [address] [email or web address] documented as of this encounter Results * XR CERVICAL SPINE 4-5 VIEWS (04/18/2018 1:03 PM EST) Anatomical Region Laterality Modality C-spine Radiographic Ivy ging 04/18/2018 1:04 PM EST Impressions 04/18/2018 1:07 PM EST Postsurgical changes with lower cervical fusion and mid to upper degenerative changes with disc space narrowing and spurring at C3-C4 and C4-5. Reversal of normal cervical lordosis with relatively fixed alignment in comparing the neutral, flexion, and extension lateral views. S/S: Neck pain, prior surgery, cervicalgia, degenerative disc disease POS - [id number] Narrative 04/18/2018 1:07 PM EST COMPARISON: Cervical spine x-rays January 22, 2015 FINDINGS: Lateral neutral, lateral flexion, and lateral extension views of the cervical spine are obtained along with an AP view of the cervical spine. The patient had a prior ventral plate fusion of C5-C7. Degenerative changes evident at C3-4 and C4-5 with reversal of the normal cervical lordosis. This is unchanged. Flexed extension views disclose some mild tilt at the L3 level with flexion but without significant subluxation or abnormal motion evident. Procedure Note Pj Huddleston MD - 04/18/2018 COMPARISON: Cervical spine x-rays January 22, 2015 FINDINGS: Lateral neutral, lateral flexion, and lateral extension views of thecervical spine are obtained along with an AP view of the cervical spine. The patient had a prior ventral plate fusion of C5-C7. Degenerative changes evident at C3-4 and C4-5 with reversal of the normalcervical lordosis. This is unchanged. Flexed extension views disclose some mild tilt at the L3 level withflexion but without significant subluxation or abnormal motion evident. IMPRESSION: Postsurgical changes with lower cervical fusion and mid to upperdegenerative changes with disc space narrowing and spurring at C3-C4 andC4-5. Reversal of normal cervical lordosis with relatively fixed alignmentin comparing the neutral, flexion, and extension lateral views. S/S: Neck pain, prior surgery, cervicalgia, degenerative disc disease POS - [id number] Jose Juan Neves MD IMG XR SPINE Final R esult documented in this encounter Visit Diagnoses Diagnosis Cervicalgia Cervicalgia documented in this encounter Additional Health Concerns [...] documented as of this encounter Care Teams Bulk Pallet Builder Relationship Specialty Start Date End Date Alma Farias MD [email or web address] PCP - General Family Medicine 08/08/17 05/07/19 Jacky Kulkarni MD [address] [place] [address] [address] [place] [address] [email or web address] PCP - General Internal Medicine 05/08/19 documented as of this encounter Additional Source Comments The information contained in this document represents components of the legal health record. It is not the complete legal health record.[facility]
--- OUTSIDE RECORDS SUMMARY | 2025-03-05 14:34 | XMS_ITS | Encounter Summary ---
Author Organization [facility] Address [address] [place] [address] Phone Care Team Providers Care Fly Rail Operator Name Role Phone Jacky Kulkarni MD Primary Care Provider Encounter Details Date Type Department Care Team (Late st Contact Info) Description 01/21/2020 Ancillary Orders [facility] Non-Invasic Cardiology [address] [place] [address] Sukhwinder Martinez MD [address] [place] [phone] Paroxysmal atrial fibrillation Social History Tobacco Use Types Packs/Day Years [...] Description 03/06/2025 10:00 AM EST Office Visit [facility] [address] [facility] [address] [place] [id number] Jacky Kulkarni MD 14 [facility] [address] [place] [address] [email or web address] 11/13/2025 11:20 AM EDT Office Visit [facility] 14 [facility] [address] [place] [address] Jacky Kulkarni MD 14 [facility] [address] [place] [address] [email or web address] documented as of this encounter Results * NC Stress Result for Nuclear Stress Test (01/21/2020 5:00 PM EST) Max BP Systolic 208 mmHg [facility] Max BP Diastolic 64 mmHg [facility] Max HR 148 BPM [facility] Resting HR 73 BPM [facility] Resting BP Systolic 140 mmHg [facility] Resting BP Diastolic 70 mmHg [facility] Peak METS 7.0 METS [facility] Peak HR 139 BPM [facility] Anatomical Region Laterality Modality Heart Other 01/21/2020 9:45 AM EST 01/21/2020 4:50 PM EST Narrative 01/23/2020 7:42 AM EST Response to Stress The patient exercised for minutes seconds, achieving 7.0 METS at peak exercise. Baseline blood pressure was 140/70 mmHg, and baseline heart rate was 73 bpm. The patient achieved a peak heart rate of 139 bpm, which is% of their maximum predicted heart rate. REPORT- Pt exercised for 5:26 min on a HODA protocol achieving 7.0 METS. Test terminated due to fatigue. Baseline resting HR was 57. Max heart rate achieved was 148 (101% MPHR). 1. EKG - Baseline EKG showed sinus bradycardia with PACs. During exercise, there were up to 1mm horizontal ST depressions in V4-V6. 2. SYMPTOMS - Patient reported 2/10 centralized chest pressure in immediate recovery which spontaeously resolved by 4-5 minutes into recovery. 3. EXERCISE PHYSIOLOGY - Hypertensive response to exercise. Baseline BP was 142/90 and mayda to 208/64 at peak exercise. BP was 162/80 upon discharge from the stress lab. Average functional capacity for age. 4. ARRHYTHMIAS - Very frequent isolated PACs and PVCs as well as ventricular couplets which increased in frequency during exercise. One 5 beat run of NSVT. Conclusion - Abnormal stress test with EKG evidence suggestive of ischemia and with symptoms concerning for angina. Hypertensive response to exercise. Frequent ventricular ectopy noted. Nuclear images pending and will be reported separately. Fannie Fajardo PA-C with Dr. Porter.. Johnnm Parker Martinez MD CV NM CARDIAC Final R esult documented in this encounter Visit Diagnoses Diagnosis Paroxysmal atrial fibrillation Atrial fibrillation Paroxysmal atrial fibrillation Atrial fibrillation documented in this encounter Additional Health Concerns [...] documented as of this encounter Care Teams Fly Rail Operator Relationship Specialty Start Date End Date Jacky Kulkarni MD [address] [place] [address] [address] [place] [address] [email or web address] PCP - General Internal Medicine 05/08/19 documented as of this encounter Additional Source Comments The information contained in this document represents components of the legal health record. It is not the complete legal health record.[facility]
--- OUTSIDE RECORDS SUMMARY | 2025-03-05 14:34 | XMS_ITS | Encounter Summary ---
Author Organization [facility] Address [address] [place] [address] Phone Care Team Providers Care Microbiology Laboratory Manager Name Role Phone Jacky Kulkarni MD Primary Care Provider Encounter Details Date Type Department Care Team (Late st Contact Info) Description 05/07/2021 Procedure Pass [facility], [address] [address] Social History Tobacco Use Types Packs/Day Years [...] Description 03/06/2025 10:00 AM EST Office Visit [facility] 14 [facility] [address] [place], [place] [phone] Jacky Kulkarni MD 14 [facility] [address] [place], [place] [phone] 11/13/2025 11:20 AM EDT Office Visit [facility] 14 [facility] [address] [place] [address] Jacky Kulkarni MD 14 [facility] [address] [place] [address] [email or web address] documented as of this encounter Visit Diagnoses [...] documented as of this encounter Care Teams Microbiology Laboratory Manager Relationship Specialty Start Date End Date Jacky Kulkarni MD [address] [address] [email or web address] PCP - General Internal Medicine 05/08/19 documented as of this encounter Additional Source Comments The information contained in this document represents components of the legal health record. It is not the complete legal health record.[facility]
--- OUTSIDE RECORDS SUMMARY | 2025-03-05 14:34 | XMS_ITS | Clinical Summary ---
Author Organization [facility] Address [address] [place] [address] Care Team Providers Care Manager Stars Name Role Phone Su Farias MD Primary [...] MG Chew Tab 1 TABLET DAILY Active [place]-3 Fatty Acids 300 MG Cap 2 CAPSULES [...] - 1-dose 75+ series) 2020 COVID-19 Vaccine (2024-2 6 season) 2024 Influenza (#1) 2024 HPV Vaccine (No Doses Required) Completed Hep A Aged Out No longer eligi [...] [employer] PREFERRED HMO Care Teams Manager Stars Relationship Specialty Start Date End Date Su Farias MD PCP - General Pediatrics 03/16/12
--- OUTSIDE RECORDS SUMMARY | 2025-03-05 14:34 | XMS_ITS | Encounter Summary ---
Author Organization [facility] Address [address] [place] [address] Care Team Providers Care Golf Ball Cover Treater Name Role Phone Su Farias MD Primary Care Provider Unavailabl e Encounter Details Date Type Department Care Team ([facility] st Contact Info) Description 04/13/2012 Orders Only [facility] Orthopedic Surgery [address] [phone] Guy Jorge MD [address] [place] [address] Social History Tobacco Use Types Packs/Day Years [...] thigh documented in this encounter Care Teams Golf Ball Cover Treater Relationship Specialty Start Date End Date Su Farias MD PCP - General Pediatrics 03/16/12 documented as of this encounter
--- OUTSIDE RECORDS SUMMARY | 2025-03-05 14:34 | XMS_ITS | Clinical Summary ---
Author Organization [facility] Address [address] [facility] [address] [place] [address] Phone Care Team Providers Care Internal Consultant Name Role Phone Jacky Kulkarni MD Primary Care Provider [phone] Allergies Active Allergy Reactions Criticality Noted Date Comments Aspirin Low 03/08/2006 Bloodly nose Patient is now taken taken Takes a 2 baby aspirins in am and 2 in pm Ciprofloxacin Other (See Comments),Renal Toxicity High 12/15/2007 RENAL FUNCTION CHANGES renal failure RENAL FUNCTION CHANGES Ibuprofen Renal Toxicity Medium 03/21/2008 [facility] Medications ELIQUIS 5 mg tabletIndicatio ns:Paroxysmal atrial fibrillation Take 1 tablet (5 mg total) by mouth 2 (two) times a day. 180 tablet 3 03/16/19 22 Active Additional Information Patient taking differently: 2.5 mgOral 2 times daily, Reported on 02/18/2025 cholecalciferol (VITAMIN D3) 25 MCG (1,000 unit) tablet Take 1,000 Units by mouth daily. Active rosuvastatin (CRESTOR) 20 MG tabletIndicatio ns:Atherosclero sis of [place] coronary artery of [place] heart without angina pectoris Take 1 tablet (20 mg total) by mouth daily. 90 tablet 3 09/04/19 25 Active calcium carbonate-mag hydroxid 1,000-200 mg Chew Take 100 mg by mouth daily. 03/15/19 25 Active cyanocobalamin, vitamin B-12, (VITAMIN B-12) 1,000 mcg/mL Drop Take 1,000 mcg by mouth. 10/05/19 Active valsartan (DIOVAN) 40 MG tabletIndicatio ns:Primary hypertension Take 1 tablet (40 mg total) by mouth daily. 90 tablet 1 02/19/20 25 2025 Active amoxicillin (AMOXIL) 500 MG capsule TAKE FOUR CAPSULES BY MOUTH ONE HOUR BEFORE DENTAL APPOINTMENT 12/20/19 24 2024 Discontinued(N o longer taking) fluconazole (DIFLUCAN) 150 MG tabletIndicatio ns:Onychomycosi s Take 1 tablet (150 mg total) by mouth once a week. 12 tablet 11/09/19 25 2024 Discontinued(N o longer taking) valsartan (DIOVAN) 80 MG tabletIndicatio ns:Primary hypertension TAKE 1 TABLET BY MOUTH TWICE DAILY ONLY TAKE IF BLOOD PRESSURE IS OVER 140 180 tablet 3 12/07/19 25 2024 Discontinued Active Problems Problem Noted Date Diagnosed Date Parkinson's disease without dyskinesia or fluctuating manifestations 08/14/2024 Changing skin lesion 05/25/2023 Subcutaneous mass of neck 05/05/2023 Disorder of sacrum 01/11/2022 COVID-19 01/26/2021 Acute kidney injury 09/19/2020 Assessment & Plan (09/19/2020 2:25 PM EDT): His last set of labs did show an acute kidney injury which I suspect was from diarrhea and nausea. 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 He will continue his rosuvastatin 20 mg daily as well as his Diovan-HCTZ Assessment & Plan (09/19/2020 2:24 PM EDT): He is not having symptoms of angina. We will continue on rosuvastatin as well as valsartan Assessment & Plan (07/10/2020 2:37 PM EDT): Patient has a history of CAD status post CABG in 2006 per patient report. We do not have a lot of patient records as he has previously lived in [place] and obtained cardiology care through our [place] office. I have asked him to ask for his records to be sent to us as he is now going to follow in the [place] office so we know what previous testing and procedures he has had to answer his questions appropriately. He denies any symptoms concerning for angina today. Continue to optimize his cardiac risk factors. Continue aspirin and statin. Paroxysmal atrial fibrillation 05/29/2020 Assessment & Plan (05/21/2021 10:25 AM EDT): S/p atrial fibrillation ablation. He reports that he did not have any episodes of atrial fibrillation since then. He was unable to tolerate a beta-prudencio in the past as well as Multaq these medications were discontinued. He is on diltiazem 120 mg daily. He is also on Eliquis 5 mg twice daily for anticoagulation. He has noticed a decrease in his pulse. He does not report any symptoms with this per se however he does report having a decrease in stamina and has to sit more often to rest. He does not know if this is associated more with his plate in his neck that will need to be addressed by a neurosurgeon. He denies lightheadedness or sensation of passing out. I will send a message to Dr. Monteiro to see if there is any other medications we can try or if he wants to stop his diltiazem altogether however there is a strong likelihood that he will have an increase in his atrial fibrillation if he comes off of his calcium channel prudencio. His pulse here in the office was 46 bpm however his heart rate was irregular and his EKG today showed sinus arrhythmia with PACs. I do not think his heart rate that he is getting on his O2 sensor at home is quite accurate due to his PACs. Assessment & Plan (11/20/2020 9:30 AM EDT): S/p ablation for atrial fibrillation he has had no other episodes of A. fib or AVNRT since then. He was on Multaq but was unable to tolerate this medication due to its side effects. He will remain on diltiazem 120 mg daily, Eliquis 5 mg twice daily. His blood pressure is elevated today but he has been consuming more sodium than typical and was asked to reduce this in addition to drinking more fluid and to check his blood pressures at home. His EKG today shows bradycardia with some atrial bigeminy. He is asymptomatic with this. Assessment & Plan (09/19/2020 2:23 PM EDT): He is doing well since stopping his Multaq and has not had any recurrences of either atrial fibrillation or AVNRT since his ablation. We discussed that we will try to avoid antiarrhythmics for now. I noted that if he does have a recurrence, his antiarrhythmic options are limited given his coronary artery disease but that he could be admitted for either sotalol or dofetilide or consider a repeat ablation. Given he is doing so well after his ablation, we will hold off on any other options for now. We will continue Eliquis and diltiazem and noted that depending on his heart rate and blood pressure, we could consider titrating down medications at his next visit including his diltiazem but he will need to stay on Eliquis long-term Assessment & Plan (07/10/2020 2:33 PM EDT): Patient had an atrial fibrillation and AVNRT ablation at [facility] on 06/18/2020. He was told to continue Eliquis 5 mg twice a day for adequate anticoagulation as well as diltiazem and Multaq for 3 months post procedure. Patient states that he has been feeling sluggish, we are going to continue to monitor this symptom in hopes that with discontinuation of Multaq, he will feel better. EKG in the office today shows sinus bradycardia with PACs. Assessment & Plan (05/29/2020 7:32 PM EDT): Continue diltiazem and Eliquis for now. I noted that 1 option we could do for the short-term is to start Multaq. I noted that Multaq has likely a 30% success rate in preventing atrial fibrillation and that for the majority of people who take Multaq they do have recurrences though it is somewhat successful. I noted that an ablation has a 70 to 80% success rate though with a 1 to 4% risk of bleeding, infection, cardiac perforation, stroke, heart attack, . He agreed that he wanted to start the Multaq as a bridge to an ablation and would like to get an ablation due to a more durable effect. We would also plan on doing an SVT ablation given this has been a recurrent issue. 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 We will plan on doing both procedures at the same time. I will do a 2-week monitor to document his rhythm to confirm both his burden and capture his arrhythmias before the procedure Hypertension 01/09/2020 Assessment & Plan (05/21/2021 10:20 AM EDT): Blood pressures well controlled today 126/84. He is on diltiazem 120 mg daily, valsartan-hydrochlorothiazide 160-25 mg tablet daily. He will remain on his medications without change. Assessment & Plan (11/20/2020 9:29 AM EDT): Blood pressure is mildly elevated at 142/72. He has been eating more salt than usual due to being corn season. He also is not drinking enough fluid. I have asked him to buy a blood pressure cuff at home to monitor his blood pressure reduce his sodium and increase his fluid intake. Asked to call this office if his blood pressure continues to remain above 130/80. At that time we will discuss increasing his antihypertensives or adding another agent. Assessment & Plan (07/10/2020 2:34 PM EDT): Blood pressure in the office today 120/72, very well controlled. No medication adjustments today. Assessment & Plan (05/29/2020 7:32 PM EDT): His blood pressure is well controlled on diltiazem Hip pain 06/28/2012 Overview (04/27/2014): Hip pain Encounters Date Type Department Care Team Description 02/18/2025 2:00 PM EST Office Visit [facility] [address] [place] [address] Jacky Kulkarni MD Left shoulder pain, unspecified chronicity (Primary Dx); Parkinson's disease with fluctuating manifestations, unspecified whether dyskinesia present; Primary hypertension; Atherosclerosis of [place] coronary artery of [place] heart without angina pectoris; Paroxysmal atrial fibrillation 02/07/2025 9:56 AM EST - 02/07/2025 11:59 PM EST Hospital Encounter [facility] - [facility] [address] [place] [address] Jacky Kulkarni MD Discharge Disposition: Home or Self Care 12/06/2024 Refill [facility] [address] [place] [address] Jacky Kulkarni MD Medication Refill (Valsartan) from Last 3 Months Immunizations Immunization Administration Dates Next Due COVID-19 (Pre-12/27) Moderna Vaccine, mRNA, PF 06/05/2020,05/08/2020 Hepatitis A, Adult 07/19/2016,01/13/2016 Hepatitis B Adult 07/19/2016,02/16/2016,01/17/20 16 Influenza High-Dose Quadriva lent Preservative Free IM 01/12/2021 Influenza High-Dose Trivalen t Preservative Free IM 12/16/2017 Influenza Quadrivalent Adjuv anted Preservative Free IM 12/18/2022 Influenza Quadrivalent Preservative Free IM 11/06 Pneumococcal conjugate PCV13 02/14/2015,03/16/19 15 Pneumococcal conjugate PCV20 10/29/2021 Pneumococcal polysaccharide PPSV23 10/09/2012, Tdap 04/09/2011 Zoster live 03/30/2012 Zoster recombinant 10/29/2021 Family History Medical History Relation Comments Heart block Father Heart block Mother Relation Status Comments Father Mother Social History Tobacco Use Types Packs/Day Years Used Date Smoking Tobacco: Former Cigarettes 1 975 - 1984 Smokeless Tobacco: Never Tobacco Cessation:Counseling Given: Not Answered Comments:in his 20s Alcohol Use Standard Drinks/Week [...] Orientation Straight 01/24/2021 12 :01 PM EST Last Filed Vital Signs Vital Sign Reading Time Taken Comments Blood Pressure 130/72 02/18/2025 2:13 PM EST Pulse 58 02/18/2025 2:13 PM EST Temperature 36.4 C (97.6 F) 02/18/2025 2:13 PM EST Respiratory Rate 16 02/19/2024 2:31 PM EST Oxygen Saturation 97% 02/18/2025 2:1 3 PM EST Inhaled Oxygen Concentration - - Weight 101.9 kg (224 lb 9.6 oz) 025 2:13 PM EST with shoes Height 179 cm (5' 10.47 ) 11/08/2024 2: 36 PM EDT Body Mass Index 31.8 11/08/2024 2:36 PM EDT Plan of Treatment Upcoming Encounters Date Type Department Care Team (Late st Contact Info) Description 03/06/2025 10:00 AM EST Office Visit [facility] [address] [place] [address] Jacky Kulkarni MD [address] [facility] [address] [place] [address] [email or web address] 11/13/2025 11:20 AM EDT Office Visit [facility] [address] [facility] [address] [place] [address] Jacky Kulkarni MD [address] [facility] [address] [place] [address] [email or web address] Health Maintenance Due Date Last Done Comments COLOGUARD 1990 FIT TEST 1990 FOBT 1990 SIGMOIDOSCOPY 1990 VIRTUAL COLONOSCOPY 1990 RSV VACCINE (1 - 1-dose 75+ series) 2020 Adult Td,Tdap Booster 04/09/2021 04/09/2011 ZOSTER VACCINES (3 of 3) 12/24/2021 10/29/2021, 03/08 INFLUENZA VACCINE (#1) 2024 , 01/12/2021, 11/30/2019, Additional history exists COVID-19 VACCINE ( season) 2024 06/05/2020, 05/08/2020 CREATININE LEVEL 08/14/2025 08/14/2024, , 03/29/2022, Additional history exists POTASSIUM LEVEL 08/14/2025 08/14/2024, 10/06, 03/29/2022, Additional history exists BLOOD PRESSURE 08/19/2025 02/18/2025 DEPRESSION SCREENING 11/01/2025 11/01/2024 SMOKING Hx and SMOKELESS TOBACCO SCREENING 11/08/2025 11/08/2024 COLONOSCOPY 04/07/2027 08/17/2022, 02/0 03/2022, 12/13/2006 COLORECTAL CANCER SCREENING 04/07/2027 HEPATITIS C SCREENING Completed 01/13/2016 HEPATITIS A VACCINES Aged Out 07/19/2016, 01/13/20 16 No longer eligible based on patient's age to complete this topic PNEUMOCOCCAL VACCINES (50+ years) Completed 10/29/2021, 02/14/2015, 03/16/2014, Additional history exists HIB VACCINES Aged Out No longer eligi ble based on patient's age to complete this topic MENINGOCOCCAL VACCINES (ACWY) Aged Out No longer eligible based on patient's age to complete this topic MENINGOCOCCAL VACCINES (B) Aged Out N o longer eligible based on patient's age to complete this topic Medical Devices Not on file Procedures Procedure Name Priority Date/Time Associated Diagnosis Comments LIPID PANEL Routine 02/21/2025 9:20 AM EST Atherosclerosis of [place] coronary artery of [place] heart without angina pectoris CBC AND DIFFERENTIAL Routine 02/07/2025 11:03 AM EST Tick bite C-REACTIVE PROTEIN (CRP) Routine 02/07/2025 11:03 AM EST Tick bite SEDIMENTATION RATE (ESR) Routine 02/07/2025 11:03 AM EST Tick bite CBC AND DIFFERENTIAL Routine 02/07/2025 11:03 AM EST Tick bite LYME SCREEN WITH REFLEX TO WESTERN BLOT, BLOOD Routine 02/07/2025 11:03 AM EST Tick bite XR SHOULDER 2 VIEWS (LEFT) Routine 02/07/2025 10:05 AM EST Left shoulder pain COMPREHENSIVE METABOLIC PANEL (CMP) Routine 08/14/2024 2:07 PM EDT Urinary frequency HM COLONOSCOPY FOR RESULT ENTRY ONLY Routine 08/17/2022 OUTSIDE HEPATITIS C VIRUS SCREENING Routine 01/13/2016 from Last 3 Months or Most Recently Relevant to Health Maintenance Results * Lipid Panel (02/21/2025 9:20 AM EST) Cholesterol 143 <200 mg/dL 02/21/2025 11:16 AM EST [facility] HDL 55 >=40 mg/dL 02/21/2025 11:16 AM [facility] Calculated LDL 70 <130 mg/dL 02/21/2025 11:16 AM [facility] Comment:LDL is calculated us ing the Dailey-NIH equation (KARLENE Cardiol. 2019July 05;5(5):540-548). Non-HDL Cholesterol 88 mg/dL 02/21/2025 11:16 AM [facility] Comment:Guidelines suggest a non-HDL cholesterol goal 30 mg/dL higher than the patient-specific LDL cholesterol goal. Cardiac Risk Ratio 2.6 0.0 - 5.0 2024 11:16 AM [facility] Triglycerides 100 <=150 mg/dL 02/21/2025 11:16 AM [facility] Blood (Blood) Venipuncture / Unknown 02/21/2025 9:20 AM EST 02/21/2025 10:39 AM EST Jacky Kulkarni MD LAB BLOOD BKR ORDERABLES Fin al Result Performing Organization Address [facility] Co de Phone Number [address] [address] * Lyme Screen with Reflex to Immunoblot (02/07/2025 11:03 AM EST) [facility] Lyme Ab IgG Negative Negative 02/08/2025 8:50 AM [facility] Lyme Ab IgM Negative Negative 02/08/2025 8:50 AM [facility] Comment:A negative result do es not rule out the possibility of B.burgdorferi infection in a patient. Patients in early stages of infection may not produce detectable levels of antibody. Blood (Blood) Venipuncture / Unknown 02/07/2025 11:03 AM EST 02/07/2025 11:19 AM EST Jacky Kulkarni MD LAB BLOOD BKR ORDERABLES Fin al Result Performing Organization Address [facility] Co de Phone Number [address] [address] * (ABNORMAL) CBC and Differential (02/07/2025 11:03 AM EST) [facility] WBC 5.89 4.00 - 11.00 K/uL 02/07/2025 11:22 AM [facility] RBC 4.45(L) 4.50 - 5.90 M/uL 02/07/2025 11:22 AM [facility] Hemoglobin 13.6 13.5 - 17.5 g/dL 02/07/2025 11:22 AM [facility] Hematocrit 41.8 41.0 - 53.0 % 02/07/2025 11:22 AM [facility] MCV 93.9 80.0 - 100.0 fL 02/07/2025 11:22 AM [facility] MCH 30.6 27.0 - 31.0 pg 02/07/2025 11:22 AM [facility] MCHC 32.5 32.0 - 36.0 g/dL 02/07/2025 11:22 AM [facility] MPV 11.6 8.4 - 12.0 fL 02/07/2025 11:22 AM [facility] RDW-CV 12.2 11.5 - 14.5 % 02/07/2025 11:22 AM [facility] PLT 155 150 - 450 K/uL 02/07/2025 11:22 AM [facility] Neutrophils 47.5 % 02/07/2025 11:22 AM [facility] Lymphocytes 40.6 % 02/07/2025 11:22 AM [facility] Monocytes 9.8 % 02/07/2025 11:22 AM [facility] Eosinophils 1.4 % 02/07/2025 11:22 AM [facility] Basophils 0.5 % 02/07/2025 11:22 AM [facility] Imm Grans 0.2 % 02/07/2025 11:22 AM [facility] NRBC 0.0 <=0.0 /100 WBCs 02/07/2025 11:22 AM [facility] Absolute Neutrophils 2.80 1.92 - 7.60 K/uL 02/07/2025 11:22 AM [facility] Absolute Lymphocytes 2.39 0.72 - 4.10 K/uL 02/07/2025 11:22 AM [facility] Absolute Monocytes 0.58 0.16 - 1.10 K/uL 02/07/2025 11:22 AM [facility] Absolute Eosinophils 0.08 0.00 - 0.50 K/uL 02/07/2025 11:22 AM [facility] Absolute Basophils 0.03 0.00 - 0.15 K/uL 02/07/2025 11:22 AM [facility] Absolute Imm Grans 0.01 0.00 - 0.09 K/uL 02/07/2025 11:22 AM [facility] Absolute NRBC 0.00 <=0.00 K cells/uL 02/07/2025 11:22 AM [facility] Absolute Neutrophils 2.80 1.92 - 7.60 K/uL 02/07/2025 11:22 AM [facility] Comment:Automated cell count . Manual ANC may differ if performed. Diff Type Auto 02/07/2025 11:22 AM [facility] Blood (Blood) Venipuncture / Unknown 02/07/2025 11:03 AM EST 02/07/2025 11:14 AM EST us Jacky Kulkarni MD LAB BLOOD BKR ORDERABLES Fin al Result [address] [address] * Erythrocyte Sedimentation Rate (ESR) (02/07/2025 11:03 AM EST) ESR 9 0 - 20 mm/h 02/07/2025 11:36 AM [facility] Blood (Blood) Venipuncture / Unknown 02/07/2025 11:03 AM EST 02/07/2025 11:14 AM EST us Jacky Kulkarni MD LAB BLOOD BKR ORDERABLES Fin al Result Performing Organization Address City/[facility]/ZIP Co de Phone Number [address] [address] * C-Reactive Protein (CRP) (02/07/2025 11:03 AM EST) C Reactive Protein <3.0 <10.0 mg/L 02/07/2025 11:56 AM EST [facility] Comment:NOTE: This reference range is for the evaluation of inflammation. Order CRP, High Sensitivity for cardiac risk status evaluation. Blood (Blood) Venipuncture / Unknown 02/07/2025 11:03 AM EST 02/07/2025 11:17 AM EST us Jacky Kulkarni MD LAB BLOOD BKR ORDERABLES Fin al Result [facility] [address] [place] [address] * XR SHOULDER 2 VIEWS (LEFT) (02/07/2025 10:05 AM EST) Anatomical Region Laterality Modality Shoulder Left Computed Radiogr aphy 02/07/2025 2:41 PM EST Impressions 02/07/2025 2:41 PM EST Rotator cuff calcific tendinopathy. Degenerative changes. Narrative 02/07/2025 2:41 PM EST XR SHOULDER 2 OR MORE VIEWS (LEFT) Referring clinician's provided indication for this examination in Epic: Pain COMPARISON: None FINDINGS: There is mineralization at the rotator cuff insertion consistent with calcific tendinopathy. No acute fracture or dislocation. Mild glenohumeral degenerative changes. Mild acromioclavicular degenerative changes. Procedure Note Ginna Pugh MD - 02/07/2025 XR SHOULDER 2 OR MORE VIEWS (LEFT) Referring clinician's provided indication for this examination in Epic:Pain COMPARISON: None FINDINGS: There is mineralization at the rotator cuff insertion consistent withcalcific tendinopathy. No acute fracture or dislocation. Mild glenohumeral degenerative changes.Mild acromioclavicular degenerative changes. IMPRESSION: Rotator cuff calcific tendinopathy. Degenerative changes. us Jacky Kulkarni MD IMG XR UPPER EXTREMITY Final Result * Comprehensive metabolic panel (08/14/2024 2:07 PM EDT) SODIUM 138 133 - 146 mmol/L [facility] POTASSIUM 4.3 3.3 - 5.1 mmol/L [facility] CHLORIDE 105 96 - 108 mmol/L [facility] CO2 25 21 - 35 mmol/L [facility] BUN 12 6 - 19 mg/dL [facility] CREATININE 0.90 0.5 - 1.5 mg/dL [facility] GLUCOSE 90 70 - 99 mg/dL [facility] ALBUMIN 4.3 3.9 - 4.8 g/dL [facility] TOTAL PROTEIN 7.3 6.5 - 8.0 g/dL [facility] CALCIUM 10.1 8.4 - 10.3 mg/dL [facility] ALKALINE PHOSPHATASE 56 39 - 117 U/L [facility] TOTAL BILIRUBIN 0.3 0.0 - 1.2 mg/dL [facility] AST 23 0 - 37 U/L [facility] ALT 19 0 - 40 U/L [facility] GLOBULIN 3.0 1 - 4.8 g/dL [facility] EGFR 87 >59 mL/min/1.7 3m2 [facility] Comment:Estimated glomerular filtration rate calculated using the CKD-EPI refit equation. ANION GAP 12 10 - 20 mmol/L [facility] Blood 08/14/2024 2:07 PM EDT 08/14/2024 2:10 PM EDT us Em Reid NP LAB BLOOD BKR ORDERABLES F inal Result [address] [address] * COLONOSCOPY FOR RESULT ENTRY ONLY (08/17/2022) Pathologist [facility] Colonoscopy External us Historical Provider HEALTH MAINTENANCE Final Result * Outside Hepatitis C Virus Screening (01/13/2016) Pathologist [facility] Hepatitis C Screening - External Neg us Historical Provider LAB BLOOD ORDERABLES Diane l Result from Last 3 Months or Most Recently Relevant to Health Maintenance Insurance [facility] MEDICARE PPO BLUE REPLACEMENT MEDICARE PART A & B [facility] MEDICARE PPO BLUE REPLACEMENT MEDICARE PART A & B [facility] MEDICARE PPO BLUE REPLACEMENT MEDICARE PART A & B [facility] MEDICARE PPO BLUE REPLACEMENT MEDICARE PART A & B [place] P[place]UE REPLAC[place] MEDICARE PART A & B [facility] MEDICARE PPO BLUE REPLACEMENT MEDICARE PART A & B [facility] MEDICARE PPO BLUE REPLACEMENT MEDICARE PART A & B [facility] MEDICARE PPO BLUE REPLACEMENT MEDICARE PART A & B [facility] MEDICARE PPO BLUE REPLACEMENT MEDICARE PART A & B Care Teams Internal Consultant Relationship Specialty Start Date End Date Jacky Kulkarni MD [address] [place] [address] [address] [place] [address] [email or web address] PCP - General Internal Medicine 05/08/19 Additional Source Comments The information contained in this document represents components of the legal health record. It is not the complete legal health record.[facility]
== END 2025-03-05 10:47 ==
LOC: HO.LAB 10:46
PROVIDERS: Visit Provider Nurse Practitioner Family
DX: Z01.818 Encounter for other preprocedural examination (principal)
CPT/HCPCS: 36415; 82565; 84520